=== PATIENT | male | born 1975 | race Caucasian/White ===

== ENCOUNTER 2019-04-18 12:57 | Outpatient (RCR) | payer MEDICARE, SELFPAY ==
[2019-04-18 14:09] VITALS: BP 120/76; PULSE 66; RESP 20; O2SAT 97; BMI 26.4
== END 2019-07-17 23:59 | disposition home or self-care (01) ==
PROVIDERS: Visit Provider Specialist
DX: I25.2 Old myocardial infarction (principal)
CPT/HCPCS: 93798

== ENCOUNTER 2020-01-22 20:03 | Emergency (ER) | payer MEDICARE, MEDICAID, SELFPAY ==
--- NOTE | ~2020-01-22 | CT_ITS ---
EXAMINATION: CT abdomen pelvis w con DATE: 01/22/2020 22:12 INDICATION: Right lower quadrant abdominal pain. Leukocytosis. TECHNIQUE: Computed tomography (CT) of the abdomen and pelvis was performed with 100 mL Omnipaque-350 intravenous contrast. Automated exposure control and iterative reconstruction technique were employe d. The dose-length product was 437.01 mGy-cm. COMPARISON: None FINDINGS: Mild bibasilar dependent atelectasis. 6 mm right lower lobe nodule. Heart size is normal. Atheroscler otic coronary artery calcification. No pericardial or pleural effusion. Median sternotomy wires and m ediastinal surgical clips are seen, likely from prior coronary artery bypass grafting. 1.6 cm hepatic cyst. Gallbladder, spleen, pancreas and bilateral adrenal glands are normal. Bilateral renal cysts, the largest on the left measuring 1.3 cm. Mild cecal wall thickening at the appendiceal orifice where there is a tiny calcified appendicolith. Prominent inflammatory stranding surrounding the appendix w hich is dilated to 11 mm with a few tiny foci of gas in the fat along the periphery of the appendix c onsistent with acute appendicitis with microperforation. No abscess or more remote free intraperitone al gas. Remainder of the bowels are normal. Bladder is normal. Small bilateral fat-containing inguina l hernias. Likely physiologic mild anterior wedging at T12 and L1. Severe disc height loss at L5-S1. No pathologically enlarged abdominal or pelvic lymphadenopathy. IMPRESSION: 1. Acute appendicitis with microperforation. Reviewed, dictated and finalized at location A.
--- NOTE | 2020-01-22 20:20 | ED.ABDPAIN ---
HPI - Abdominal Pain General Chief Complaint: Abdominal Pain Stated Complaint: abdominal pain Time Seen by Provider: 01/22/20 20:20 Source: patient Mode of arrival: ambulatory Limitations: no limitations History of Present Illness HPI narrative: 44-year-old man comes in today complaining of right lower quadrant pain that started 3 days ago. Patient states that it is worse with movement, palpation, and eating. He states that he ate last at 6:00 p.m., trying to eat soup, but was on late able to tolerate about four bites. He denies radiation to back, groin, flank or chest. He denies hematuria, dysuria, fever, nausea, vomiting, diarrhea, hematochezia, melena, and lightheadedness. He denies previous similar symptoms. MD elicited complaint: abdominal pain Onset (ago): day(s) (3) Pain Consistency: constant Location: RLQ Severity: severe Quality: stabbing and sharp Radiation: none Migration to: no migration Exacerbating factors: eating and movement Relieving factors: rest Related Data Home Medications Medication Instructions Recorded Confirmed atorvastatin 40 mg PO DAILY 01/22/20 01/22/20 clopidogrel 75 mg PO DAILY 01/22/20 01/22/20 docusate sodium [Stool Softener] 100 mg PO DAILY 01/22/20 01/22/20 fluticasone propionate 1 spray INTRANASAL BID 01/22/20 01/22/20 lisinopril 5 mg PO DAILY 01/22/20 01/22/20 metoprolol tartrate 50 mg PO BID 01/22/20 01/22/20 Allergies Allergy/AdvReac Type Severity Reaction Status Date / Time No Known Allergies Allergy Unverified 11/29/18 12:26 Review of Systems Constitutional: Constitutional: Denies chills, Denies fever(s) and Denies weakness Eyes: Eyes: Denies change in vision and Denies photophobia ENT: Denies dysphagia, Denies nasal congestion and Denies sore throat Cardiovascular: Cardiovascular: Denies chest pain and Denies radiating jaw, neck or arm pain Respiratory: Respiratory: Denies cough and Denies dyspnea Gastrointestinal: Gastrointestinal: Reports as per HPI Genitourinary: Genitourinary: Reports as per HPI Musculoskeletal: Musculoskeletal: Denies back pain, Denies arthralgias and Denies joint swelling Integumentary/Breasts: Skin/Breast: Denies pruritus, Denies erythema and Denies rash Neurologic: Denies vertigo, Denies dizziness and Denies syncope Hematologic/Lymphatic: Hematologic/Lymphatic: Denies easy bleeding and Denies easy bruising Allergic/Immunologic: Allergic/Immunologic: Denies lip swelling and Denies tongue swelling PMFSH Past Medical History Medical History CAD (coronary artery disease) Hyperlipidemia Hypertension Surgical History Surgical History History of ear surgery Hx of CABG Previous back surgery Family History Family History (Updated 04/18/19 @ 15:00 by Anant Hood RN) Father Acute myocardial infarction Mother Diabetes mellitus Social History Social History Smoking packs per day: 2.5 Smoking cigarettes per day: 50.0 Years smoked: 28 Smoking pack-years: 70.00 Smoking status: Former smoker Tobacco type: cigarettes Alcohol intake: former Substance use: never Gender identity (if verbalized by the patient): Male Exam Const: General: healthy appearing and alert Orientation/consciousness: patient oriented x3 Limitations: no limitations Other: [id number] acute distress HENMT: Head: normal to inspection Ears: external ears normal, TM's normal bilaterally and EAC's normal General nose exam: Normal nares present Face and sinus: normal facial exam Mouth: Yes moist mucous membranes Throat: posterior oropharynx normal Eyes: Conjunctivae: conjunctivae normal Pupils: Equal, round and reactive pupils present EOM: EOMs intact bilaterally Resp: Effort & Inspection: normal respiratory effort and not labored Auscultation: clear to au
[2020-01-22 20:24] VITALS: BP 127/74; PULSE 78; RESP 20; TEMP 36.2; O2SAT 98
[2020-01-22] MEDS: MORPHINE SULFATE (*CRX) 4 MG/ML INJ IV PUSH ×2 (20:41→22:15)
[2020-01-22] MEDS: ONDANSETRON INJ 4 MG/2 ML VIAL IV PUSH (20:42)
[2020-01-22] MEDS: SODIUM CHLORIDE 0.9% IV 1,000 ML 999 ML IV CONT ×2 (20:43→22:27)
[2020-01-22 20:56] LABS: Add Urine Microscopic? YES; Appearance Urine Clear (Clear); Bilirubin Urine 1+ (Negative); Blood Urine Negative (Negative); Color Urine Yellow (Yellow); Glucose Urine UA Negative (Negative); Ketones Urine Trace (Negative); Leukocyte Esterase Ur Negative LEU/UL (Negative); Nitrate Urine Negative (Negative); Protein Urine Trace (Negative)
[2020-01-22 20:56] LABS: Basophils Absolute Auto 0.04 K/mm3 (0.00-0.10); Basophils Percent Auto 0.3 % (0.0-1.0); Eosinophils Absolute Auto 0.11 K/mm3 (0.02-0.50); Eosinophils Percent Auto 0.9 % (1.0-6.0); Hematocrit 35.6 % (40.0-54.0); Hemoglobin 11.1 g/dL (14.0-18.0); Immature Granulocyte Absolute 0.06 K/mm3 (0.00-0.00); Immature Granulocyte Percent A 0.5 % (0.0-0.0); Lymphocytes Absolute Auto 1.18 K/mm3 (1.10-4.50); Mean Corpuscular HGB Conc 31.2 g/dL (32.0-36.0); Mean Corpuscular Hemoglobin 20.1 pg (27.0-31.0); Mean Corpuscular Volume 64.4 fL (78.0-102.0); Monocytes Absolute Auto 1.37 K/mm3 (0.10-0.90); Monocytes Percent Auto 11.6 % (2.0-11.0); Neutrophils Absolute Auto 9.1 K/mm3 (1.7-7.2); Neutrophils Percent Auto 76.7 % (50.0-70.0); Platelet Count Result 180 K/mm3 (150-420); Red Blood Count 5.53 M/mm3 (4.70-6.10); White Blood Count 11.8 K/mm3 (4.8-10.8)
[2020-01-22 21:05] LABS: RBC Urine None seen /hpf (0-2)
[2020-01-22 21:06] LABS: Bacteria Urine Trace /hpf; Mucus Urine Moderate /lpf; Squamous Epithelial Cell Urine Rare /hpf (Few); WBC Urine None seen /hpf (0-3)
[2020-01-22 21:11] LABS: Alanine Aminotransferase 17 U/L (16-63); Albumin Level 3.7 g/dL (3.4-5.0); Alkaline Phosphatase 83 U/L (46-116); Anion Gap 6 mmol/L (8-16); Aspartate Amino Transferase < 10 U/L (15-37); Bilirubin,Total 0.6 mg/dL (0.00-1.00); Blood Urea Nitrogen 12 mg/dL (7-18); Calcium 8.3 mg/dL (8.5-10.1); Carbon Dioxide 28 mmol/L (21-32); Chloride 104 mmol/L (98-108); Estimated CRCL calculation 86 ml/min; Estimated Glomerular Filt Rate > 60; Glucose 97 mg/dL (70-99); Lipase 99 U/L (73-393); Osmolality Calculated 285 mOsm/kg (285-295); Partial Thromboplastin Time 31.2 SEC (22.3-31.6); Potassium 3.8 mmol/L (3.5-5.1); Prothrombin Time 10.7 Seconds (9.64-11.0); Sodium 138 mmol/L (136-145); Total Protein 7.1 g/dL (6.4-8.2)
[2020-01-22 21:16] LABS: Lactic Acid Reflex 0.9 mmol/L (0.4-2.0)
[2020-01-22 22:05] VITALS: BP 102/61; PULSE 62; RESP 20; O2SAT 96
[2020-01-22 22:16] VITALS: BP 112/65; PULSE 64; RESP 20; O2SAT 96
--- NOTE | 2020-01-22 22:24 | PC.NURSE ---
CALL PLACED TO [facility] FOR POSSIBLE TRANSFER
[2020-01-22 22:48] VITALS: BP 115/66; PULSE 64; RESP 14; O2SAT 98
[2020-01-22 23:16] VITALS: BP 122/67; PULSE 85; RESP 20; O2SAT 97
== END 2020-01-22 23:19 | disposition short-term general hospital (02) ==
PROVIDERS: Emergency Provider Emergency Medicine
DX: K35.30 Acute appendicitis with localized peritonitis, without perforation or gangrene (principal)
CPT/HCPCS: 36415; 74177; 80053; 81001; 83605; 83690; 85025; 85610; 85730; 96361; 96365; 96375; 96376; 99285; J2270; J2405; J2543; J7030; Q9965

== ENCOUNTER 2020-01-23 00:04 | Inpatient (IN) | payer MEDICARE, MEDICAID, SELFPAY ==
--- NOTE | 2020-01-22 23:45 | ADMGEN ---
This patient, Ras Hi, was admitted to Medical Room 349-01. Patient/family oriented to hospital policies and general routines including ID bracelet, bed and alarms, visiting hours, pain management, procedures, bathroom and other care routines, personal items, smoking policy, room service/diet, and visiting hours. Information on how to activate the Rapid Response Team has been discussed. Patient/Family are encouraged to report perceived risks to care and to ask questions if they do not understand what they are told or what they should do.
[2020-01-22 23:50] VITALS: BP 120/78
[2020-01-23] VITALS (18 sets, daily range): BP systolic 99–152; BP diastolic 51–85; PULSE 64–90; RESP 12–19; TEMP 36–36.6; O2SAT 93–100; BMI 27.4
[2020-01-23] MEDS: LACTATED RINGERS 1,000 ML 125 ML IV CONT (00:41)
[2020-01-23] MEDS: MORPHINE SULFATE (*CRX) 2 MG/ML INJ IV PUSH (05:59)
--- NOTE | 2020-01-23 06:12 | WPDANESEPP ---
Anes - Eval Pre Procedure Procedure: lap appendectomy Date/Time: 01/23/20 06:12 Surgeon: ursula Pre Op Diagnosis: Acute Appendicitis Patient Data Age: 44 Gender: M Height: 1.8 m Weight: 89.2 kg Last Vital Signs Temp 36.4 C 01/23/20 05:59 Pulse 66 01/23/20 05:59 Resp 14 01/23/20 05:59 BP 107/63 01/23/20 05:59 Pulse Ox 94 01/23/20 05:59 Allergies Allergy/AdvReac Type Severity Reaction Status Date / Time No Known Allergies Allergy Unverified 11/29/18 12:26 Home Medications Medication Instructions Recorded Confirmed Type atorvastatin 40 mg PO HS 01/22/20 01/23/20 History clopidogrel 75 mg PO DAILY 01/22/20 01/23/20 History docusate sodium [Stool Softener] 100 mg PO DAILY 01/22/20 01/23/20 History fluticasone propionate 1 spray INTRANASAL BID 01/22/20 01/23/20 History lisinopril 5 mg PO HS 01/22/20 01/23/20 History metoprolol tartrate 50 mg PO BID 01/22/20 01/23/20 History aspirin [Aspirin Low Dose] 81 mg PO DAILY 01/23/20 01/23/20 History Laboratory Tests 01/23/20 01/23/20 05:54 05:54 WBC Pending RBC Pending Hgb Pending Hct Pending MCV Pending MCH Pending MCHC Pending RDW Pending Plt Count Pending MPV Pending Sodium Pending Potassium Pending Chloride Pending Carbon Dioxide Pending Anion Gap Pending BUN Pending Creatinine Pending Estim Creat Clear Calc Pending Estimated GFR Pending Glucose Pending Calcium Pending Patient hx anesthesia problems: none Family hx anesthesia problems: none PMFSH Past Medical History Medical History CAD (coronary artery disease) Hyperlipidemia Hypertension Surgical History Surgical History History of ear surgery Hx of CABG Previous back surgery Family History Family History Father Acute myocardial infarction Mother Diabetes mellitus Social History Social History Smoking packs per day: 3.5 Smoking cigarettes per day: 70.0 Years smoked: 28 Smoking pack-years: 98.00 Smoking status: Former smoker Tobacco type: cigarettes Smokeless tobacco user: chewing tobacco Alcohol intake: never Substance use: never Gender identity (if verbalized by the patient): Male Spiritual care concerns: No Exam Day of Procedure 01/23/20 06:12
[2020-01-23 06:16] LABS: Hemoglobin 10.5 g/dL (14.0-18.0); Immature Platelet Fraction Pct 8.8 % (0.9-11.2); Mean Corpuscular HGB Conc 30.9 g/dl (32-36); Mean Corpuscular Hemoglobin 20.2 pg (26-34); Mean Corpuscular Volume 65.3 fl (80-100); Platelet Count Result 147 k/mm3 (150-375); Red Blood Count 5.21 M/mm3 (4.6-6.20); Red Cell Distribution Width 15.2 % (11.5-14.5); White Blood Count 10.3 K/mm3 (4.5-10.0)
[2020-01-23 06:32] LABS: Anion Gap 6 mmol/L (8-16); Blood Urea Nitrogen 11 mg/dL (9-20); Calcium 8.5 mg/dL (8.4-10.2); Carbon Dioxide 27 mmol/L (22-30); Chloride 105 mmol/L (98-107); Estimated CRCL calculation 109 ml/min; Estimated Glomerular Filt Rate > 60; Glucose 107 mg/dL (75-110); Sodium 138 mmol/L (137-145)
--- NOTE | 2020-01-23 08:41 | PC.NURSE ---
Patient to OR per bed. Consent signed and on the chart. 1200 zosyn sent on chart.
[2020-01-23] MEDS: LACTATED RINGERS 1,000 ML 30 ML IV CONT ×2 (08:50→10:42)
--- NOTE | 2020-01-23 09:34 | PM.IMHP ---
H&P: HPI History of Present Illness Date/Time: 01/23/20 09:34 Chief complaint: RLQ abdominal pain Narrative: Ras Hi is a 44 year old male who presented to [facility] ED with pain in his RLQ for 4 days. Denies fevers, chills, nausea, vomiting, or change in bowel habits. Has never had anything like this before. He has hx CAD and had a CABG 1 year ago. He is currently on Aspirin and Plavix. Review of Systems Review of Systems: All systems reviewed & are unremarkable except as noted in HPI and below Constitutional: Constitutional: Denies chills and Denies fever(s) Eyes: Eyes: Denies change in vision ENT: Denies hearing loss, Denies neck pain and Denies sore throat Cardiovascular: Cardiovascular: Denies chest pain and Denies dyspnea Respiratory: Respiratory: Denies cough, Denies dyspnea and Denies wheezing Genitourinary: Genitourinary: Denies hematuria and Denies dysuria Musculoskeletal: Musculoskeletal: Denies arthralgias, Denies joint swelling and Denies neck pain Allergic/Immunologic: Allergic/Immunologic: Denies wheezing [facility] Past Medical History Medical History CAD (coronary artery disease) Hyperlipidemia Hypertension Surgical History Surgical History History of ear surgery Hx of CABG Previous back surgery Family History Family History Father Acute myocardial infarction Mother Diabetes mellitus Social History Social History Smoking packs per day: 3.5 Smoking cigarettes per day: 70.0 Years smoked: 28 Smoking pack-years: 98.00 Smoking status: Former smoker Tobacco type: cigarettes Smokeless tobacco user: chewing tobacco Alcohol intake: never Substance use: never Gender identity (if verbalized by the patient): Male Spiritual care concerns: No Meds Home Medications and Allergies Home Medications Medication Instructions Recorded Confirmed Type atorvastatin 40 mg PO HS 01/22/20 01/23/20 History clopidogrel 75 mg PO DAILY 01/22/20 01/23/20 History docusate sodium [Stool Softener] 100 mg PO DAILY 01/22/20 01/23/20 History fluticasone propionate 1 spray INTRANASAL BID 01/22/20 01/23/20 History lisinopril 5 mg PO HS 01/22/20 01/23/20 History metoprolol tartrate 50 mg PO BID 01/22/20 01/23/20 History aspirin [Aspirin Low Dose] 81 mg PO DAILY 01/23/20 01/23/20 History Allergies Allergy/AdvReac Type Severity Reaction Status Date / Time No Known Allergies Allergy Unverified 11/29/18 12:26 Vital Signs Vital Signs - 24 hr 01/22/20 23:50 01/23/20 05:59 01/23/20 08:58 Temperature 36.4 C 36.6 C Pulse Rate 66 70 Respiratory Rate 14 16 Blood Pressure 120/78 107/63 117/69 Pulse Oximetry 94 98 Exam Const: General: alert; No acute distress Orientation/consciousness: patient oriented x3 Limitations: no limitations HENMT: Head: normocephalic and atraumatic Ears: hearing grossly normal bilaterally General nose exam: Normal external nose present and Normal nares present Mouth: Yes Normal oral and palatal mucosa present and Yes moist mucous membranes Eyes: General: appearance normal, both eyes and all related structures Conjunctivae: conjunctivae normal Sclera: sclerae normal Pupils: Equal, round and reactive pupils present EOM: EOMs intact bilaterally Neck: Neck: normal visual inspection, full ROM, no lymphadenopathy, supple and no JVD Lymphatic: no lymphadenopathy noted Chest: Chest palpation & inspection: normal inspection of the chest Resp: Effort & Inspection: normal respiratory effort and able to speak in complete sentences Auscultation: clear to auscultation bilaterally Percussion: percussion normal Cardio: Jugular venous distension: no JVD Rate: regular rate Rhythm: regular rhythm Heart sounds: S1 normal heart sound
--- NOTE | 2020-01-23 09:39 | WPDHPUPDATE1 ---
History and Physical Update Update Date/Time: 01/23/20 09:39 History and Physical has been reviewed, including an updated exam of the patient. There are NO changes in the patient's condition. Risks, benefits, and alternatives have been discussed and questions answered. Patient agrees to proceed with procedure.
[2020-01-23] MEDS: BUPIVACAINE/EPINEPHRINE 0.5% 10 ML VIAL 30 ML INFILTRATE (10:13)
--- NOTE | 2020-01-23 10:43 | PM.PROC ---
Procedure Note - Detailed Date of procedure: 01/23/20 Pre-op diagnosis: Acute appendicitis Post-op diagnosis: other (Acute perforated appendicitis, Left inguinal hernia) Procedure performed: Laparoscopic Appendectomy Description of procedure: Procedure as well as risks, benefits, and alternatives were explained to the patient. The patient agreed to proceed. Written consent was obtained and placed in chart prior to procedure. The patient was brought back to surgical suite. He was placed supine on operating table. Time-out was done to confirm the patient and procedure. The patient was then intubated by the Anesthesia Department. His abdomen was prepped and draped in sterile fashion using chlorhexidine prep. A 12 mm incision was made at the superior portion of the umbilicus. Blunt dissection was carried out down to the linea alba. The linea alba was then incised using a 15 blade scalpel. Then bluntly entered into the peritoneal cavity. A 12 mm trocar was then inserted, and carbon dioxide insufflation was used to create a pneumoperitoneum. The camera was inserted and the abdomen was inspected. No immediate abnormalities were identified. The patient was then placed in slight Trendelenburg position and rotated to the left. A 5 mm incision was made in the suprapubic region in midline and a 5 mm trocar was inserted under direct visualization. A 5 mm incision was made in the left lower quadrant and a 5 mm trocar was inserted under direct visualization. The right lower quadrant was carefully inspected. The cecum was identified and then this was traced back to the appendix. The appendix was identified and grasped at the mesoappendix and lifted anteriorly. Careful blunt dissection was carried out at the base of the appendix through the mesoappendix using a [place] grasper. An Endo-MICAH 45 mm blue load stapler was then advanced across the base of the appendix and clamped and fired. A white reload was then clamped across the mesoappendix and fired. This freed up our appendix completely. It was then placed in an EndoCatch bag and removed through the left lower quadrant port. The staple lines were then inspected. Hemostasis appeared adequate and the staple lines appeared secure. The area was then irrigated with sterile saline. The pelvis was then carefully inspected and irrigated with sterile saline as well and the remainder of the abdomen was carefully inspected. The patient was then flattened out in bed. One final inspection was made around the abdominal cavity and no other abnormalities were seen. The ports were then removed under direct visualization. The camera was removed and the pneumoperitoneum was released. The fascia of the umbilical incision was reapproximated using an 0 Vicryl [id number] suture. 0.5% bupivacaine with epinephrine was infiltrated locally around each of the incisions. The skin of the incisions was then approximated using 4-0 Monocryl subcuticular suture and Exofin glue was applied on top. The patient was then awakened from anesthesia, extubated, and transferred to Recovery. Anesthesia: GETA and local (0.5% bupivicaine with epi) Surgeon: Chadwick Wolf DO Estimated blood loss (mL): 5 Pathology: yes (Appendix) Complications: No immediate complications Condition: stable Disposition: floor Findings: This is a 44-year-old man who presented to [facility] overnight with complaints of right lower quadrant abdominal pain. He had been experiencing pain for about 4 days. He denies any fevers or chills. Denies any change in bowel habits. In the emergency department at [facility] he was noted to have an elevated white blood count and CT showed evidence of acute appendicitis with possible perforation. He was then transferred to [facility] for further treatment. He was started on broad-spectrum IV antibiotics. Discussions were made with the patient about treatment options and decision was made to proceed wi
[2020-01-23] MEDS: fentaNYL CITRATE INJ (*CRX) 100 MCG/2 ML VIAL 25 MCG IV PUSH ×4 (11:00→11:15)
[2020-01-23] MEDS: HYDROmorphone HCL INJ (*CRX) 1 MG/ML SYR 0.5 MG IV PUSH ×2 (11:27→11:36)
--- NOTE | 2020-01-23 11:57 | PC.NURSE ---
Patient returned from OR per bed. Report received from GRACE Spears.
[2020-01-23] MEDS: METOPROLOL TARTRATE 50 MG TAB PO (17:08)
[2020-01-23] MEDS: FLUTICASONE PROPIONATE 0.05% NA SPR 16 GM BTL (*BKC) 1 SPRAY NASAL (17:08)
[2020-01-23] MEDS: lisinopriL 5 MG TABLET PO (20:02)
[2020-01-23] MEDS: ATORVASTATIN 40 MG TABLET PO (20:02)
[2020-01-23] MEDS: ACETAMINOPHEN 325 MG TABLET 650 MG PO (20:03)
[2020-01-24] VITALS (7 sets, daily range): BP systolic 98–127; BP diastolic 56–74; PULSE 55–89; RESP 14–17; TEMP 36.2–36.3; O2SAT 95–98
[2020-01-24 05:33] LABS: Hematocrit 33.9 % (42.0-52.0); Hemoglobin 10.4 g/dL (14.0-18.0); Immature Platelet Fraction Pct 10.3 % (0.9-11.2); Mean Corpuscular HGB Conc 30.7 g/dl (32-36); Mean Corpuscular Hemoglobin 20.2 pg (26-34); Mean Corpuscular Volume 65.8 fl (80-100); Platelet Count Result 167 k/mm3 (150-375); Red Blood Count 5.15 M/mm3 (4.6-6.20); Red Cell Distribution Width 14.9 % (11.5-14.5); White Blood Count 11.3 K/mm3 (4.5-10.0)
[2020-01-24 05:45] LABS: Anion Gap 8 mmol/L (8-16); Blood Urea Nitrogen 11 mg/dL (9-20); Calcium 8.9 mg/dL (8.4-10.2); Carbon Dioxide 27 mmol/L (22-30); Chloride 103 mmol/L (98-107); Estimated CRCL calculation 98 ml/min; Estimated Glomerular Filt Rate > 60; Glucose 115 mg/dL (75-110); Sodium 138 mmol/L (137-145)
[2020-01-24] MEDS: ASPIRIN 81 MG ENTERIC TABLET PO (08:39)
[2020-01-24] MEDS: DOCUSATE SODIUM 100 MG CAPSULE PO (08:39)
[2020-01-24] MEDS: METOPROLOL TARTRATE 50 MG TAB PO ×2 (08:40→17:28)
[2020-01-24] MEDS: FLUTICASONE PROPIONATE 0.05% NA SPR 16 GM BTL (*BKC) 1 SPRAY NASAL ×2 (08:41→17:27)
[2020-01-24] MEDS: ACETAMINOPHEN 325 MG TABLET 650 MG PO ×2 (08:55→17:27)
--- NOTE | 2020-01-24 11:53 | PM.PNGS ---
Progress Note: A&P Assessment and Plan (1) Acute appendicitis: Code(s): K35.80 - Unspecified acute appendicitis Status: Acute Assessment and Plan: Continue IV Zosyn Increase activity Advance diet Possibly home tomorrow (2) extermination inspector (current) use of antithrombotics/antiplatelets: Code(s): Z79.02 - nursing home (current) use of antithrombotics/antiplatelets Status: Acute (3) CAD (coronary artery disease): Code(s): I25.10 - Atherosclerotic heart disease of [place] coronary artery without angina pectoris Status: Acute Subjective Subjective Date/Time Seen: 01/24/20 11:53 Pain controlled. Tolerating diet. No fevers. Exam GI: Inspection: non-distended and incision (intact with glue) GI Palp: Yes Tenderness to palpation present (GI) (incisional) Auscultation: Hypoactive bowel sounds present Objective Data Vital Signs Vital Signs: Vital Signs - 24 hr 01/23/20 12:28 01/23/20 12:43 01/23/20 13:13 Temperature 36.6 C 36.5 C 36.4 C L Pulse Rate 72 64 69 Respiratory Rate 14 16 14 Blood Pressure 101/53 L 99/67 L 106/64 Pulse Oximetry 97 96 98 01/23/20 14:39 01/23/20 17:08 01/23/20 19:25 Temperature 36.6 C 36.3 C L Pulse Rate 73 90 71 Respiratory Rate 12 14 Blood Pressure 113/72 112/69 Pulse Oximetry 98 96 01/23/20 20:00 01/23/20 23:39 01/24/20 05:10 Temperature 36.0 C L 36.3 C L Pulse Rate 71 64 66 Respiratory Rate 14 14 14 Blood Pressure 103/52 L 122/62 Pulse Oximetry 96 94 95 01/24/20 08:00 01/24/20 08:40 Temperature 36.3 C L Pulse Rate 68 72 Respiratory Rate 14 Blood Pressure 127/74 Pulse Oximetry 97 Intake/Output Intake/Output: Intake & Output 01/21/20 01/22/20 01/23/20 01/24/20 23:59 23:59 23:59 23:59 Intake Total 2772 340 Output Total 1075 Balance 1697 340 Meds/Results Medications: Active Medications Generic Name Dose Route Start Last Admin Trade Name Freq PRN Reason Stop Dose Admin Acetaminophen 650 mg 01/23/20 11:43 01/24/20 08:55 Acetaminophen 325 Mg Tablet PO 650 mg Q6H PRN Administration Mild Pain (1-3) or Fever Hydrocodone Bitart/Acetaminophen 1 tab 01/23/20 11:43 Hydrocodone/Acetaminophen (*Crx) 5-325 Mg Tablet PO Q4H PRN Pain Rated 4-6 Hydrocodone Bitart/Acetaminophen 1 tab 01/23/20 11:43 Hydrocodone/Acetaminophen (*Crx) 7.5-325 Mg Tablet PO Q4H PRN Pain Rated 7-10 Aspirin 81 mg 01/24/20 09:00 01/24/20 08:39 Aspirin 81 Mg Enteric Tablet PO 81 mg DAILY CHAVA Administration Atorvastatin Calcium 40 mg 01/23/20 21:00 01/23/20 20:02 Atorvastatin 40 Mg Tablet PO 40 mg HS CHAVA Administration Docusate Sodium 100 mg 01/24/20 09:00 01/24/20 08:39 Docusate Sodium 100 Mg Capsule PO 100 mg DAILY CHAVA Administration Fluticasone Propionate 1 spray 01/23/20 17:00 01/24/20 08:41 Fluticasone Propionate 0.05% Na Spr 16 Gm Btl (*Bkc) NASAL 1 spray BID CHAVA Administration Piperacillin/Tazobactam/Dextrose 3.375 gm in 50 mls @ 100 mls/hr 01/23/20 00:00 01/24/20 05:58 Zosyn 3.375 Gm/D5w 50ml Pm IVPB Infused Q6H CHAVA Infusion Lisinopril 5 mg 01/23/20 21:00 01/23/20 20:02 Lisinopril 5 Mg Tablet PO 5 mg HS CHAVA Administration Metoprolol Tartrate 50 mg 01/23/20 17:00 01/24/20 08:40 Metoprolol Tartrate 50 Mg Tab PO 50 mg BID CHAVA Administration Morphine Sulfate 4 mg 01/23/20 11:43 Morphine Sulfate (*Crx) 4 Mg/Ml Inj IV PUSH Q2H PRN Pain Rated 7-10 Morphine Sulfate 2 mg 01/23/20 11:43 Morphine Sulfate (*Crx) 2 Mg/Ml Inj IV PUSH Q2H PRN Pain Rated 4-6 Ondansetron HCl 4 mg 01/23/20 00:07 Ondansetron Inj 4 Mg/2 Ml Vial IV PUSH Q4H PRN Nausea And Vomiting Labs Labs: Laboratory Results - last 24 hr 01/24/20 01/24/20 05:01 05:01 WBC 11.3 H RBC 5.15 Hgb 10.4 L Hct 33.9 L MCV 65.8 L MCH 20.2 L MCHC 30.7 L RDW 14.9 H Plt Count 167 MP
--- NOTE | 2020-01-24 12:00 | WPDANESPN ---
Anes - Prog Note Post-Op Date/Time: 01/24/20 12:00 Cardiovascular status: normal Respiratory status: normal Airway patency: baseline Mental status: baseline Post-Op hydration status: normal Vital Signs: Last Vital Signs Temp 36.3 C L 01/24/20 08:00 Pulse 72 01/24/20 08:40 Resp 14 01/24/20 08:00 BP 127/74 01/24/20 08:00 Pulse Ox 97 01/24/20 08:00 Pain Score (VAS): 2 I/O: Intake & Output 01/23/20 01/24/20 01/24/20 23:59 07:59 15:59 Intake Total 912 100 240 Output Total 425 Balance 487 100 240 Laboratory Tests 01/24/20 05:01 01/24/20 05:01 01/24/20 01/24/20 05:01 05:01 WBC 11.3 H RBC 5.15 Hgb 10.4 L Hct 33.9 L MCV 65.8 L MCH 20.2 L MCHC 30.7 L RDW 14.9 H Plt Count 167 MPV TNP % Immature Plt Fraction 10.3 Sodium 138 Potassium 4.0 Chloride 103 Carbon Dioxide 27 Anion Gap 8 BUN 11 Creatinine 0.90 Estim Creat Clear Calc 98 Estimated GFR > 60 Glucose 115 H Calcium 8.9 Post-procedural complaints: none Patient Feedback: Patient satisfied with anesthetic care.
[2020-01-24] MEDS: lisinopriL 5 MG TABLET PO (20:42)
[2020-01-24] MEDS: ATORVASTATIN 40 MG TABLET PO (20:42)
[2020-01-25 04:46] VITALS: BP 100/58; PULSE 57; RESP 16; TEMP 36.1; O2SAT 96
[2020-01-25 06:17] LABS: Anion Gap 3 mmol/L (8-16); Blood Urea Nitrogen 14 mg/dL (9-20); Calcium 8.7 mg/dL (8.4-10.2); Carbon Dioxide 29 mmol/L (22-30); Chloride 105 mmol/L (98-107); Estimated CRCL calculation 98 ml/min; Estimated Glomerular Filt Rate > 60; Glucose 94 mg/dL (75-110); Potassium 3.8 mmol/L (3.4-5.0); Sodium 137 mmol/L (137-145)
[2020-01-25 06:20] LABS: Hematocrit 29.4 % (42.0-52.0); Hemoglobin 9.4 g/dL (14.0-18.0); Immature Platelet Fraction Pct 9.5 % (0.9-11.2); Mean Corpuscular Hemoglobin 20.2 pg (26-34); Mean Corpuscular Volume 63.1 fl (80-100); Platelet Count Result 158 k/mm3 (150-375); Red Blood Count 4.66 M/mm3 (4.6-6.20); Red Cell Distribution Width 14.7 % (11.5-14.5); White Blood Count 7.1 K/mm3 (4.5-10.0)
[2020-01-25] MEDS: ASPIRIN 81 MG ENTERIC TABLET PO (08:22)
[2020-01-25] MEDS: DOCUSATE SODIUM 100 MG CAPSULE PO (08:22)
[2020-01-25] MEDS: FLUTICASONE PROPIONATE 0.05% NA SPR 16 GM BTL (*BKC) 1 SPRAY NASAL (08:22)
[2020-01-25 08:23] VITALS: PULSE 61
[2020-01-25] MEDS: METOPROLOL TARTRATE 50 MG TAB PO (08:23)
[2020-01-25] MEDS: ACETAMINOPHEN 325 MG TABLET 650 MG PO (11:15)
--- NOTE | 2020-01-25 11:55 | PM.DS ---
DS: Admitting Diagnosis Admitting Diagnosis Admitting Diagnosis: Acute appendicitis DS: Discharge Diagnosis Discharge Diagnosis (1) Acute appendicitis: Code(s): K35.80 - Unspecified acute appendicitis Status: Acute (2) rn infusion (current) use of antithrombotics/antiplatelets: Code(s): Z79.02 - rn infusion (current) use of antithrombotics/antiplatelets Status: Acute (3) CAD (coronary artery disease): Code(s): I25.10 - Atherosclerotic heart disease of [place] coronary artery without angina pectoris Status: Acute (4) Hypertension: Code(s): I10 - Essential (primary) hypertension Status: Acute (5) Hyperlipidemia: Code(s): E78.5 - Hyperlipidemia, unspecified Status: Acute DS: Summary Hospital Course Reason for hospitalization: Acute appendicitis Hospital Course: This is a 44-year-old man who presented to [place] [facility] on 01/21 with complaints right lower quadrant pain. CT of his abdomen and pelvis showed evidence of likely perforated appendicitis. He was transferred to [facility] for further treatment. On 01/23/2020 he underwent laparoscopic appendectomy. He was placed on broad-spectrum IV antibiotics. Surgery was uncomplicated and he was doing well postoperatively. On postop day 1 he was tolerating a diet and his pain was improving. His white blood count was still elevated but he was remaining hemodynamically stable. On postop day 2 he remained afebrile and now his white count came down to normal. He was tolerating his diet with minimal pain and was ambulating without much difficulty. He was discharged on postop day 2. Status at Discharge Functional status at discharge: independent ambulation Overall status at discharge: patient is progressing back to baseline Time Spent with Patient Time attestation: Total time spent providing and/or coordinating discharge services: Time spent: Less than 30 minutes Exam GI: Inspection: incision ( Clean/dry /intact) GI Palp: Yes Soft to palpation and No Tenderness to palpation present (GI) Auscultation: normal bowel sounds DS: Data Data Completed and Pending Completed studies during hospitalization: Pending at discharge 01/23/20 10:09 Surgical [PTH] Routine Labs on day of discharge: Labs from last 24 hours 01/25/20 01/25/20 05:57 05:57 WBC 7.1 RBC 4.66 Hgb 9.4 L Hct 29.4 L MCV 63.1 L MCH 20.2 L MCHC 32.0 RDW 14.7 H Plt Count 158 MPV TNP % Immature Plt Fraction 9.5 Sodium 137 Potassium 3.8 Chloride 105 Carbon Dioxide 29 Anion Gap 3 L BUN 14 Creatinine 0.90 Estim Creat Clear Calc 98 Estimated GFR > 60 Glucose 94 Calcium 8.7 Discharge Plan Discharge Attending physician on discharge: Chadwick Claudio Discharging Clinician: Chadwick Claudio Patient Disposition: Home, Self-Care Activity: other - see discharge instructions Diet: heart healthy Wound Care Instructions: follow printed instructions Discharge Instructions: DISCHARGE INSTRUCTION SHEET FOR HERNIA, GALLBLADDER AND APPENDIX SURGERIES DR. CLAUDIO PATIENT TO TAKE HOME 1. May shower, no soaking in bath x 2weeks. 2. Call office for: Wound increasingly painful or bleeding Vomiting Fever of greater than 101 degrees 3. If no bowel movement for three days, take 1 oz. (30 ml) Milk of Magnesia or MiraLax 17g 1 to 2 times daily. 4. No heavy lifting > 10-15 pounds x weeks for hernia repairs and 2 weeks for laparoscopic cholecystectomy or appendectomy. 5. No driving for 3 days or while taking narcotic pain medications. 6. Ice to surgical site for 48 hours (30 min on, then 30 min off). 7. Up walking 10-30 minutes three times per day. 8. Resume previous home medications. 9. Follow-up 10-14 days in office for wound check or as previously scheduled. ([phone]) 10. Oral
== END 2020-01-25 12:52 | disposition home or self-care (01) | DRG 340 ==
PROVIDERS: Admitting Provider Surgery; PCP Emergency Medicine; Visit Provider Surgery
PROC: 0DTJ4ZZ Resection of Appendix, Percutaneous Endoscopic Approach (ICD-10-PCS; CPT 44970; principal; 2020-01-23 10:00)
DX: K35.32 Acute appendicitis with perforation, localized peritonitis, and gangrene, without abscess (principal); Z23 Encounter for immunization; K40.90 Unilateral inguinal hernia, without obstruction or gangrene, not specified as recurrent; E78.5 Hyperlipidemia, unspecified; I25.10 Atherosclerotic heart disease of native coronary artery without angina pectoris; I10 Essential (primary) hypertension; Z95.1 Presence of aortocoronary bypass graft; Z79.02 Long term (current) use of antithrombotics/antiplatelets; Z79.82 Long term (current) use of aspirin; Z87.891 Personal history of nicotine dependence
CPT/HCPCS: 36415; 80048; 85027; 85055; 86850; 86900; 86901; 88304; 90471; 90653; 96361; 96365; 96366; 96374; 96375; A9270; G0008; G0378; J0330; J1100; J1170; J2250; J2270; J2405; J2543; J2704; J3010; J7120

== ENCOUNTER 2020-07-14 02:21 | Emergency (ER) | payer MEDICARE, MEDICAID, SELFPAY ==
--- NOTE | 2020-07-14 02:24 | ED.NECK ---
HPI - Neck Pain/Injury General Chief Complaint: Unspecified Stated Complaint: PAIN Time Seen by Provider: 07/14/20 02:27 Source: patient Mode of arrival: ambulatory Limitations: no limitations History of Present Illness HPI Narrative: 44-year-old man comes in today complaining of left-sided neck pain which has been present for last 2 months. Patient states that it got worse tonight woke him out of his sleep. He states he intermittently has tingling in his left arm but denies any numbness or weakness. He has had no recent trauma to his neck. States that he had a neck injury many years ago and was told that he had some disc problems. MD complaint: neck pain Onset (ago): month(s) (2) Radiation: left lateral, left shoulder and left upper extremity Severity: severe Quality: sharp Duration: intermittent and progressively worsening Relieving factors: none Exacerbating factors: movement of neck Associated symptoms: tingling Related Data Home Medications Medication Instructions Recorded Confirmed atorvastatin 40 mg PO HS 01/22/20 07/14/20 clopidogrel 75 mg PO DAILY 01/22/20 07/14/20 docusate sodium [Stool Softener] 100 mg PO DAILY 01/22/20 07/14/20 fluticasone propionate 1 spray INTRANASAL BID 01/22/20 07/14/20 lisinopril 5 mg PO HS 01/22/20 07/14/20 metoprolol tartrate 50 mg PO BID 01/22/20 07/14/20 aspirin [Aspirin Low Dose] 81 mg PO DAILY 01/23/20 07/14/20 Allergies Allergy/AdvReac Type Severity Reaction Status Date / Time No Known Allergies Allergy Unverified 02/09/20 14:20 Review of Systems Review of Systems: All systems reviewed & are unremarkable except as noted in HPI and below Constitutional: Constitutional: Denies chills and Denies fever(s) ENT: Denies nasal congestion and Denies sore throat Cardiovascular: Cardiovascular: Denies chest pain and Denies radiating jaw, neck or arm pain Respiratory: Respiratory: Denies cough and Denies dyspnea Gastrointestinal: Gastrointestinal: Denies vomiting Genitourinary: Genitourinary: Denies urinary incontinence Musculoskeletal: Musculoskeletal: Reports as per HPI, Denies arthralgias and Denies joint swelling Hematologic/Lymphatic: Hematologic/Lymphatic: Denies easy bleeding and Denies easy bruising Allergic/Immunologic: Allergic/Immunologic: Denies lip swelling and Denies throat swelling PMFSH Past Medical History Medical History CAD (coronary artery disease) Hyperlipidemia Hypertension Surgical History Surgical History History of ear surgery History of laparoscopic appendectomy Hx of CABG Previous back surgery Family History Family History Father Acute myocardial infarction Mother Diabetes mellitus Social History Social History Smoking packs per day: 3.5 Smoking cigarettes per day: 70.0 Years smoked: 28 Smoking pack-years: 98.00 Smoking status: Former smoker Tobacco type: cigarettes Smokeless tobacco user: chewing tobacco Alcohol intake: never Substance use: never Gender identity (if verbalized by the patient): Male Spiritual care concerns: No Exam Const: General: healthy appearing and alert Orientation/consciousness: patient oriented x3 Limitations: no limitations Other: moderate acute distress. HENMT: General nose exam: Normal nares present Face and sinus: normal facial exam Mouth: Yes moist mucous membranes Throat: posterior oropharynx normal Eyes: Conjunctivae: conjunctivae normal Pupils: Equal, round and reactive pupils present EOM: EOMs intact bilaterally Neck: Neck: normal visual inspection, no lymphadenopathy and no meningeal signs Other: Tenderness to palpation of the left paraspinal neck muscles and the left trapezius. no masses or swelling. Resp: Effort & Inspection: normal
[2020-07-14 02:31] VITALS: BP 132/80; PULSE 70; RESP 18; TEMP 37.1
[2020-07-14] MEDS: HYDROcodone/acetaminophen (*CRX) 5-325 MG TABLET 1 TAB PO (02:52)
[2020-07-14 02:56] VITALS: BP 132/82; PULSE 80; RESP 18; TEMP 36.4; O2SAT 94
== END 2020-07-14 02:57 | disposition home or self-care (01) ==
PROVIDERS: Emergency Provider Emergency Medicine
DX: M54.12 Radiculopathy, cervical region (principal)
CPT/HCPCS: 99283; A9270

== ENCOUNTER 2020-07-17 09:50 | Outpatient (CLI) | payer MEDICARE, MEDICAID, SELFPAY ==
--- NOTE | ~2020-07-17 | XR_ITS ---
EXAMINATION: XR_CERV2-3V_CR EXAM DATE: 07/17/2020 10:48 INDICATION: Left-sided neck pain into top of shoulder. TECHNIQUE: Cervical spine frontal, lateral projections. Odontoid open-mouth and submentovertex proje ctions. There is no prior study for comparison. FINDINGS: There is no evidence of acute cervical fracture. The odontoid process is intact. Pre-dens space is normal. Prevertebral soft tissue is normal. There are no soft tissue abnormalities identi fied. There is moderate disc disease at C4-5 and C6-7, mild to moderate at C3-4 and C5-6. Overall mi ld to moderate cervical arthropathy. Mild upper thoracic levoscoliosis, but likely compensatory for m uch more substantial thoracic dextroscoliosis. There are sternotomy wires. The vertebral bodies are aligned. IMPRESSION: 1. Up to moderate cervical spondylosis. Reviewed, dictated and finalized at location A.
== END 2020-07-17 09:51 | disposition home or self-care (01) ==
LOC: CHSIMG 09:53
PROVIDERS: PCP Nurse Practitioner Family; Visit Provider Nurse Practitioner Family
DX: M54.12 Radiculopathy, cervical region (principal)
CPT/HCPCS: 72040

== ENCOUNTER 2020-07-18 08:45 | Outpatient (CLI) | payer MEDICARE, MEDICAID, SELFPAY ==
--- NOTE | ~2020-07-18 | MR_ITS ---
EXAMINATION: MR cervical spine wo con EXAM DATE: 07/18/2020 09:41 INDICATION: M54.12 - Radiculopathy, cervical region . Neck pain for 2 months. Possible lifting injury . TECHNIQUE: Multi-sequential, multiplanar MR images of the cervical spine were obtained without contra st. Axial T2, axial T2 MERGE sequence. Sagittal T1, T2, T2 fat saturation images also obtained. Th ere is no prior study for comparison. FINDINGS:. Study is limited due to patient motion. Moderate disc disease at C6-7, mild to moderate at the 3 levels above. Evidence of thoracic scoliosis. The vertebral bodies are aligned in the AP dim ension. The spinal cord signal intensity and intrinsic morphology is normal. Cervicomedullary junctio n is normal in appearance. There are no suspicious marrow signal abnormalities. Level by level evaluation: C2-C3: Disc does not extend beyond the endplate margin. Uncovertebral joint arthropathy: None. Facet joint arthropathy: Mild bilateral. Neural foraminal stenosis: No stenosis. Central canal stenosis: No stenosis. C3-C4: There is a mild diffuse disc bulge. Uncovertebral joint arthropathy: Mild to moderate bilateral. Facet joint arthropathy: Mild bilateral. Neural foraminal stenosis: Mild to moderate bilateral. Central canal stenosis: Mild. C4-C5: There is a mild diffuse disc bulge. Uncovertebral joint arthropathy: Mild bilateral. Facet joint arthropathy: Mild bilateral. Neural foraminal stenosis: Mild to moderate bilateral. Central canal stenosis: Mild. C5-C6: There is a mild to moderate diffuse disc bulge asymmetric to the right Uncovertebral joint arthropathy: Moderate right, mild left. Facet joint arthropathy: Mild bilateral. Neural foraminal stenosis: Mild right. Central canal stenosis: Mild. C6-C7: There is a mild to moderate diffuse disc bulge asymmetric to the right Uncovertebral joint arthropathy: Moderate bilateral. Facet joint arthropathy: Mild bilateral. Neural foraminal stenosis: Moderate left, mild right. Central canal stenosis: Mild. C7-T1: Disc does not extend beyond the endplate margin. Uncovertebral joint arthropathy: Moderate left, mild right. Facet joint arthropathy: Mild bilateral. Neural foraminal stenosis: Mild to moderate left. Central canal stenosis: No stenosis. IMPRESSION: Limited study. Up to moderate cervical spondylosis as detailed above. Reviewed, dictated and finalized at location A. IMPRESSION: Limited study. Up to moderate cervical spondylosis as detailed deshawn burrell
== END 2020-07-18 08:46 | disposition home or self-care (01) ==
LOC: CHSIMG 08:47
PROVIDERS: PCP Nurse Practitioner Family; Visit Provider Nurse Practitioner Family
DX: M54.12 Radiculopathy, cervical region (principal); M47.812 Spondylosis without myelopathy or radiculopathy, cervical region; M41.80 Other forms of scoliosis, site unspecified
CPT/HCPCS: 72141

== ENCOUNTER 2020-07-24 12:58 | Outpatient (RCR) | payer MEDICARE, MEDICAID, SELFPAY ==
--- NOTE | 2020-07-24 14:19 | PTOPEVAL ---
Thank you for referring Ras Hi to [facility].? The patient is scheduled to be seen for therapy? ____x/week for ___ weeks. Please review, sign, date and return this plan of care ROSA. I agree with and certify that the following plan of care is medically necessary. Referring Physician Date Admitting Provider: Attending Provider: Mirian Bowers NP Referring Provider: *PT Outpatient Evaluation Start: 07/24/20 12:56 Freq: Status: Active Protocol: Document 07/24/20 12:57 ACR (Rec: 07/24/20 14:18 ACR [id number]) Therapy Assessment Status Assessment Status Assessment Status Evaluation Outpatient Past Medical History Neurological History Hx Seizures Yes: fever seizures per pt last one when he was 15 Cardiovascular History Hx Coronary Artery Bypass Graft Yes: 12/03/18 Hx Hypercholesterolemia Yes Hx Hypertension Yes Hx Myocardial Infarction Yes: 11/28/18 Respiratory History Hx Respiratory Disorders No Significant History Gastrointestinal History Hx Gastroesophageal Reflux Disease Yes Hx Other Gastrointestinal Disorders Yes: appendicitis this admission Genitourinary History Hx Kidney Stones Yes Musculoskeletal History Hx Orthopedic Surgery Yes: Disc [id number] Hematological History Hx Hematological Disorders No Significant History Endocrine History Hx Endocrine Disorders No Significant History HEENT History Hx Ear Surgery Yes: surgery for ear infection Hx Other HEENT Disorders Yes: hard of hearing both ears Integumentary History Hx Other Skin Disorders Yes: flea bites Reproductive History Hx Reproductive Disorders No Significant History Psychosocial History Hx Psychiatric Disorders No Significant History Pain History History of Any Previous or Ongoing No Significant History Instance of Pain Anesthesia History Hx Anesthesia Reactions No Significant History Evaluation Information Problem Diagnosis radiculopathy, scoliosis Onset 05/26/20 Subjective Information Patient states he has had neck Query Text:As Reported By Patient/ pain and he believes it Family started to flare up 2 months ago. Patient states that he popped the discs in his neck in 2011. Patient states he lays in bed a lot because of the pain. Patient states he is unable to turn his head to the L, and lifting his arm above shoulder level. Patient states that he has some
== END 2020-08-28 11:05 | disposition home or self-care (01) ==
LOC: CHSPT 12:58
PROVIDERS: Visit Provider Nurse Practitioner Family
DX: M54.12 Radiculopathy, cervical region (principal); M41.80 Other forms of scoliosis, site unspecified; M47.812 Spondylosis without myelopathy or radiculopathy, cervical region
CPT/HCPCS: 97014; 97110; 97140; 97161; 97530; G0283

== ENCOUNTER 2020-10-16 09:34 | Outpatient (CLI) | payer MEDICARE, SELFPAY ==
[2020-10-16 10:28] LABS: Alanine Aminotransferase 25 U/L (16-63); Alkaline Phosphatase 104 U/L (46-116); Anion Gap 11 mmol/L (8-16); Aspartate Amino Transferase 14 U/L (15-37); Bilirubin,Total 0.7 mg/dL (0.00-1.00); Blood Urea Nitrogen 9 mg/dL (7-18); Calcium 8.6 mg/dL (8.5-10.1); Carbon Dioxide 26 mmol/L (21-32); Chloride 107 mmol/L (98-108); Cholesterol 93 mg/dL (0-200); Creatine Kinase 103 U/L (39-308); Estimated Glomerular Filt Rate > 60; Glucose 87 mg/dL (70-99); HDL Direct 25 mg/dL (40-60); LDL Cholesterol Calculated 37 mg/dL (<130); Osmolality Calculated 295 mOsm/kg (285-295); Potassium 4.3 mmol/L (3.5-5.1); Sodium 144 mmol/L (136-145); Total Protein 6.5 g/dL (6.4-8.2); Triglycerides 154 mg/dL (0-150)
== END 2020-10-16 09:35 | disposition home or self-care (01) ==
LOC: CHSLAB 09:39
DX: E78.2 Mixed hyperlipidemia (principal); I25.10 Atherosclerotic heart disease of native coronary artery without angina pectoris; I25.709 Atherosclerosis of coronary artery bypass graft(s), unspecified, with unspecified angina pectoris
CPT/HCPCS: 36415; 80053; 80061; 82550

== ENCOUNTER 2020-10-18 09:57 | Outpatient (CLI) | payer MEDICARE, MEDICAID, SELFPAY ==
--- NOTE | ~2020-10-18 | US_ITS ---
EXAMINATION: US venous doppler LE RT DATE: 10/18/2020 10:21 INDICATION: Right lower limb pain. TECHNIQUE: Grayscale ultrasound images without and with compression and Doppler ultrasound images of the right lower extremity veins were obtained. COMPARISON: None. FINDINGS: The visualized portions of right common femoral vein, profunda (deep) femoral vein, femoral vein, pop liteal vein, peroneal veins, posterior tibial veins, and greater saphenous vein outflow are patent. IMPRESSION: 1. No deep venous thrombosis. Reviewed, dictated and finalized at location A.
--- NOTE | ~2020-10-18 | XR_ITS ---
EXAMINATION: XR lumbar spine 2-3V EXAM DATE: 10/18/2020 10:40 INDICATION: M54.5 - Low back pain/no trauma. TECHNIQUE: Lumber spine frontal, lateral, lateral L5-S1 projections for interpretation. There is no prior study for comparison. FINDINGS: There is moderate disc disease L5-S1. Mild lumbar facet arthropathy. Minimal anterior wedge d appearance at T11 and T12, chronic or congenital appearance. Minimal aortic arterial sclerosis. The vertebral bodies are aligned in the AP dimension. There are no acute fractures identified. Some righ t-sided bowel anastomosis material or surgical clips. Sacrum, sacroiliac joints, sacral arcuate lines are intact. IMPRESSION: 1. L5-S1 moderate disc disease. 2. Mild lumbar facet arthropathy. Reviewed, dictated and finalized at location B.
--- NOTE | ~2020-10-18 | XR_ITS ---
EXAMINATION: XR hip RT min 3V w AP pelvis EXAM DATE: 10/18/2020 10:39 INDICATION: M25.551 - Pain in right hip/no trauma. TECHNIQUE: Right hip frontal, crosstable lateral and 'frog-leg' projections for interpretation. Front al projection pelvis. There is no prior study for comparison. FINDINGS: Smooth femoral head contours, no radiographic evidence of avascular necrosis. There is mini mal symmetric bilateral hip primary osteoarthritis. There are no acute fractures or dislocations iden tified. There is no subcutaneous gas. The soft tissue is unremarkable. Some right lower quadrant bowel anastomosis material or surgical. IMPRESSION: Minimal symmetric bilateral hip osteoarthritis. Reviewed, dictated and finalized at location B.
== END 2020-10-18 09:58 | disposition home or self-care (01) ==
LOC: CHSIMG 10:00
PROVIDERS: PCP Family Medicine; Visit Provider Family Medicine
DX: M79.604 Pain in right leg (principal); M25.551 Pain in right hip; M54.5 Low back pain
CPT/HCPCS: 72100; 73502; 93971

== ENCOUNTER 2020-10-29 09:53 | Outpatient (RCR) | payer MEDICARE, MEDICAID, SELFPAY ==
--- NOTE | 2020-10-29 12:28 | PTOPEVAL ---
Thank you for referring Ras Hi to [facility].? The patient is scheduled to be seen for therapy? ____x/week for ___ weeks. Please review, sign, date and return this plan of care ROSA. I agree with and certify that the following plan of care is medically necessary. Referring Physician Date Admitting Provider: Attending Provider: Marvin Pinto MD Referring Provider: *PT Outpatient Evaluation Start: 10/29/20 09:53 Freq: Status: Active Protocol: Document 10/29/20 09:53 ACR (Rec: 10/29/20 12:28 ACR [id number]) Therapy Assessment Status Assessment Status Assessment Status Evaluation Outpatient Past Medical History Neurological History Hx Seizures Yes: fever seizures per pt last one when he was 15 Cardiovascular History Hx Coronary Artery Bypass Graft Yes: 12/03/18 Hx Hypercholesterolemia Yes Hx Hypertension Yes Hx Myocardial Infarction Yes: 11/28/18 Respiratory History Hx Respiratory Disorders No Significant History Gastrointestinal History Hx Gastroesophageal Reflux Disease Yes Hx Other Gastrointestinal Disorders Yes: appendicitis this admission Genitourinary History Hx Kidney Stones Yes Musculoskeletal History Hx Orthopedic Surgery Yes: Disc [id number] Hematological History Hx Hematological Disorders No Significant History Endocrine History Hx Endocrine Disorders No Significant History HEENT History Hx Ear Surgery Yes: surgery for ear infection Hx Other HEENT Disorders Yes: hard of hearing both ears Integumentary History Hx Other Skin Disorders Yes: flea bites Reproductive History Hx Reproductive Disorders No Significant History Psychosocial History Hx Psychiatric Disorders No Significant History Pain History History of Any Previous or Ongoing No Significant History Instance of Pain Anesthesia History Hx Anesthesia Reactions No Significant History Evaluation Information Problem Diagnosis LBP, R hip pain Onset 10/08/20 Subjective Information Patient states that he isn't Query Text:As Reported By Patient/ sure why his hip is bothering Family him. He got a Doppler which was negative for blood clots and got an x-ray which showed arthritis. He is getting an MRI on November 07. He is unable to sleep because the pain wakes him up, he cannot walk for a long distance, stand for a period of time, and navigating steps are all
--- NOTE | 2020-11-23 14:53 | PTOPEVAL ---
Thank you for referring Ras Hi to [facility].? The patient is scheduled to be seen for therapy? ____x/week for ___ weeks. Please review, sign, date and return this plan of care ROSA. I agree with and certify that the following plan of care is medically necessary. Referring Physician Date Admitting Provider: Attending Provider: Marvin Pinto MD Referring Provider: *PT Outpatient Evaluation Start: 10/29/20 09:53 Freq: Status: Active Protocol: Document 11/23/20 13:[address] [facility] (Rec: 11/23/20 14:[address] [facility] [id number]) Outpatient Past Medical History Neurological History Hx Seizures Yes: fever seizures per pt last one when he was 15 Cardiovascular History Hx Coronary Artery Bypass Graft Yes: 12/03/18 Hx Hypercholesterolemia Yes Hx Hypertension Yes Hx Myocardial Infarction Yes: 11/28/18 Respiratory History Hx Respiratory Disorders No Significant History Gastrointestinal History Hx Gastroesophageal Reflux Disease Yes Hx Other Gastrointestinal Disorders Yes: appendicitis this admission Genitourinary History Hx Kidney Stones Yes Musculoskeletal History Hx Orthopedic Surgery Yes: Disc [id number] Hematological History Hx Hematological Disorders No Significant History Endocrine History Hx Endocrine Disorders No Significant History HEENT History Hx Ear Surgery Yes: surgery for ear infection Hx Other HEENT Disorders Yes: hard of hearing both ears Integumentary History Hx Other Skin Disorders Yes: flea bites Reproductive History Hx Reproductive Disorders No Significant History Psychosocial History Hx Psychiatric Disorders No Significant History Pain History History of Any Previous or Ongoing No Significant History Instance of Pain Anesthesia History Hx Anesthesia Reactions No Significant History Evaluation Information Problem Diagnosis LBP, R hip pain Onset 10/08/20 Additional Evaluation Detail LEFS = 8% functionally declined Subjective Information patient reports he is doing Query Text:As Reported By Patient/ much better. he reports nearly Family no pain lately. he reports he has been compliant with his back brace wear and exercises at home. Pain Assessment Timing of Pain Assessment Timing of Pain Assessment Assessment Pain Scale Pain Scale Used Numeric (1 - 10) Self Report Pain Assessment Right Hip(s) Reported Pain Level 2 Greatest Pain Intensity 2 Pain Score Pain Score 2: Self Report Interventions Used Interv
== END 2021-01-27 23:59 | disposition home or self-care (01) ==
LOC: CHSPT 09:53
PROVIDERS: PCP Family Medicine; Visit Provider Family Medicine
DX: M25.551 Pain in right hip (principal); M54.5 Low back pain; M79.604 Pain in right leg
CPT/HCPCS: 97014; 97110; 97161; G0283

== ENCOUNTER 2022-06-03 10:41 | Outpatient (CLI) | payer MEDICARE, SELFPAY ==
[2022-06-03 10:56] LABS: Appearance Urine Clear (Clear); Basophils Absolute Auto 0.09 K/mm3 (0.00-0.10); Basophils Percent Auto 0.8 % (0.0-1.0); Bilirubin Urine Negative (Negative); Blood Urine Negative (Negative); Color Urine Light Yellow (Yellow); Eosinophils Absolute Auto 0.25 K/mm3 (0.02-0.50); Eosinophils Percent Auto 2.3 % (1.0-6.0); Glucose Urine UA Negative (Negative); Hemoglobin 13.2 g/dL (14.0-18.0); Immature Granulocyte Absolute 0.09 K/mm3 (0.00-0.00); Immature Granulocyte Percent A 0.8 % (0.0-0.0); Immature Platelet Fraction Pct 9.9 % (1.0-7.0); Ketones Urine Negative (Negative); Leukocyte Esterase Ur Negative (Negative); Lymphocytes Absolute Auto 2.23 K/mm3 (1.10-4.50); Lymphocytes Percent Auto 20.6 % (18.0-42.0); Mean Corpuscular HGB Conc 31.4 g/dL (32.0-36.0); Mean Corpuscular Hemoglobin 20.2 pg (27.0-31.0); Mean Corpuscular Volume 64.2 fL (78.0-102.0); Monocytes Percent Auto 6.5 % (2.0-11.0); Neutrophils Absolute Auto 7.5 K/mm3 (1.7-7.2); Nitrate Urine Negative (Negative); Platelet Count Result 156 K/mm3 (150-420); Protein Urine Negative (Negative); Red Blood Count 6.54 M/mm3 (4.70-6.10); Red Cell Distribution Width 17.9 % (11.6-14.4); Specific Grav Ur 1.025 (1.010-1.020); Urobilinogen Urine 0.2 mg/dL (0.2-1.0); White Blood Count 10.9 K/mm3 (4.8-10.8); pH Urine 5.5 (5.0-8.0)
[2022-06-03 10:59] LABS: Add Urine Microscopic? NO
[2022-06-03 11:30] LABS: Alanine Aminotransferase 26 U/L (16-63); Albumin Level 4.1 g/dL (3.4-5.0); Alkaline Phosphatase 98 U/L (46-116); Anion Gap 8 mmol/L (8-16); Aspartate Amino Transferase 14 U/L (15-37); Bilirubin,Total 0.5 mg/dL (0.00-1.00); Blood Urea Nitrogen 9 mg/dL (7-18); Calcium 8.1 mg/dL (8.5-10.1); Carbon Dioxide 29 mmol/L (21-32); Chloride 106 mmol/L (98-108); Cholesterol 116 mg/dL (0-200); Estimated Glomerular Filt Rate > 60; Glucose 99 mg/dL (70-99); HDL Direct 28 mg/dL (40-60); LDL Cholesterol Calculated 69 mg/dL (<130); Osmolality Calculated 294 mOsm/kg (285-295); Sodium 143 mmol/L (136-145); Thyroid Stimulating Hormone 2.64 uIU/mL (0.36-3.74); Total Protein 7.3 g/dL (6.4-8.2); Triglycerides 94 mg/dL (0-150)
[2022-06-03 15:13] LABS: Ferritin 232 ng/mL (26-388); Iron 77 ug/dL (65-175); Lactate Dehydrogenase 170 U/L (85-227); Percent Iron Saturation 31 % (12-57)
[2022-06-03 15:22] LABS: CRP < 0.5 mg/dL (0.0-0.9)
== END 2022-06-03 10:42 | disposition home or self-care (01) ==
PROVIDERS: PCP Internal Medicine; Visit Provider Internal Medicine
DX: I25.10 Atherosclerotic heart disease of native coronary artery without angina pectoris (principal); D64.9 Anemia, unspecified; E58 Dietary calcium deficiency
CPT/HCPCS: 36415; 80053; 80061; 81003; 82728; 83540; 83550; 83615; 84100; 84443; 85025; 85055; 86140

== ENCOUNTER 2022-06-04 14:47 | Outpatient (CLI) | payer MEDICARE, SELFPAY ==
[2022-06-07 21:02] LABS: Parathyroid Intact 31 pg/mL (14-64)
[2022-06-07 23:58] LABS: Vitamin D 1,25 (OH)2 Total 39 pg/mL (18-72); Vitamin D2 1,25 (OH)2 <8 pg/mL; Vitamin D3 1,25 (OH)2 39 pg/mL
[2022-06-08 21:05] LABS: Vitamin D 25 Hydroxy 15 ng/mL (30-100)
== END 2022-06-04 14:48 | disposition home or self-care (01) ==
PROVIDERS: PCP Internal Medicine; Visit Provider Internal Medicine
DX: D64.9 Anemia, unspecified (principal); E83.50 Unspecified disorder of calcium metabolism
CPT/HCPCS: 36415; 82306; 82330; 82652; 83970

== ENCOUNTER 2023-03-05 11:28 | Outpatient (CLI) | payer MEDICARE, SELFPAY ==
[2023-03-05 11:48] LABS: Hemoglobin 12.7 g/dL (14.0-18.0); Mean Corpuscular HGB Conc 31.8 g/dL (32.0-36.0); Mean Corpuscular Hemoglobin 20.5 pg (27.0-31.0); Mean Corpuscular Volume 64.4 fL (78.0-102.0); Platelet Count Result 149 K/mm3 (150-420); Red Blood Count 6.21 M/mm3 (4.70-6.10); Red Cell Distribution Width 16.8 % (11.6-14.4); White Blood Count 10.9 K/mm3 (4.8-10.8)
[2023-03-05 11:55] LABS: Hemoglobin A1C 5.5 % (<5.7)
[2023-03-05 11:59] LABS: INR 0.9; Prothrombin Time 10.3 Seconds (9.50-12.10)
[2023-03-05 12:30] LABS: Alanine Aminotransferase 39 U/L (16-63); Albumin Level 4.2 g/dL (3.4-5.0); Alkaline Phosphatase 92 U/L (46-116); Anion Gap 6 mmol/L (8-16); Aspartate Amino Transferase 21 U/L (15-37); Bilirubin,Total 0.6 mg/dL (0.00-1.00); Blood Urea Nitrogen 11 mg/dL (7-18); Carbon Dioxide 31 mmol/L (21-32); Chloride 105 mmol/L (98-108); Cholesterol 120 mg/dL (0-200); Creatine Kinase 70 U/L (39-308); Estimated Glomerular Filt Rate > 60; Glucose 93 mg/dL (70-99); HDL Direct 29 mg/dL (40-60); LDL Cholesterol Calculated 75 mg/dL (<130); NT Pro B Type Natriuretic Pept 161 pg/mL (0-125); Osmolality Calculated 293 mOsm/kg (285-295); Potassium 4.3 mmol/L (3.5-5.1); Sodium 142 mmol/L (136-145); Total Protein 7.2 g/dL (6.4-8.2); Triglycerides 82 mg/dL (0-150)
== END 2023-03-05 11:29 | disposition home or self-care (01) ==
LOC: CHSLAB 11:32
PROVIDERS: PCP Internal Medicine; Visit Provider Specialist
DX: R06.00 Dyspnea, unspecified (principal); R73.01 Impaired fasting glucose; Z79.01 Long term (current) use of anticoagulants; E78.5 Hyperlipidemia, unspecified
CPT/HCPCS: 36415; 80053; 80061; 82550; 83036; 83880; 85027; 85055; 85610

== ENCOUNTER 2023-07-06 19:41 | Emergency (ER) | payer MEDICARE, SELFPAY ==
[2023-07-06] VITALS (29 sets, daily range): BP systolic 143–189; BP diastolic 80–108; PULSE 53–88; RESP 18–27; TEMP 36.8–37.6; O2SAT 94–97
--- NOTE | ~2023-07-06 | US_ITS ---
Limited Abdominal Sonogram: Real-time sonographic imaging of the right upper quadrant was performed. Clinical History: Abdominal pain Findings: The liver appears normal with no evidence of mass lesion or bile duct dilatation. Main por faisal vein demonstrates normal direction of flow. The gallbladder is well distended, and demonstrates w all thickening up to 9 mm. No definite gallstone seen. The common bile duct measures 6 mm. The visua lized pancreas, aorta, and IVC are unremarkable. Impression: Gallbladder wall thickening without definite gallstone. This is a nonspecific finding. Correlate for nonspecific gallbladder wall edema or any possibility of acalculous cholecystitis. Reviewed, dictated and finalized at location . Impression: Gallbladder wall thickening without definite gallstone. This is a nonspecific f inding. Correlate for nonspecific gallbladder wall edema or any possibility of acalculous cholecystitis.
--- NOTE | ~2023-07-06 | CT_ITS ---
EXAMINATION: CT abdomen pelvis w con DATE: 07/06/2023 21:08 INDICATION: abdominal pain TECHNIQUE: Computed tomography (CT) of the abdomen and pelvis was performed with 100 mL Omnipaque-350 intravenous contrast. Automated exposure control and iterative reconstruction technique were employe d. The dose-length product was 638.36 mGy-cm. COMPARISON: 01/22/2020, report only. FINDINGS: Lower thorax: Coronary artery calcifications. Sub-6 mm right lower lobe pulmonary nodule. Liver: Subcentimeter hypodensities, too small to characterize but likely represent cysts. Biliary/Gallbladder: Mild gallbladder wall edema/fluid. No stones detected. No bile duct dilation. Pancreas: No mass or duct dilation. Spleen: Normal. Adrenals:No mass. Kidneys: Simple bilateral cysts. Multiple additional subcentimeter hypodensities that also likely rep resent cysts. Punctate nonobstructing left midpole calcification. No hydronephrosis. GI tract: Mild distal esophageal and gastric wall edema. Mild proximal jejunal dilation. C-loop confi guration of a loop of mid jejunum which appears to pass through a mesenteric window. No large bowel d ilation. Status post appendectomy Mild diverticulosis without evidence of diverticulitis. Mesentery/Peritoneum: No ascites, mass, or free air. Retroperitoneum: No mass. Atherosclerotic abdominal aortic and/or arterial calcifications. Pelvis: Pelvic organs are within normal limits. Soft Tissues: Soft tissues and body wall unremarkable. Bones: No acute osseous finding. IMPRESSION: Mild esophagitis/gastritis. Nonspecific gallbladder wall edema. Consider right upper quadrant ultrasound. Findings suspicious for a mesenteric hernia in the left upper quadrant containing a herniated loop of nondilated small bowel are mild upstream dilation. May represent partial obstruction. Early complete C-loop-type obstruction should remain in the differential. Reviewed, dictated and finalized at location K. IMPRESSION: Mild esophagitis/gastritis. Nonspecific gallbladder wall edema. Consider right upper quadrant ultrasound. Findings suspicious for a mesenteric hernia in the left upper quadrant containi ng a herniated loop of nondilated small bowel are mild upstream dilation. May r epresent partial obstruction. Early complete C-loop-type obstruction should rem ain in the differential.
--- NOTE | ~2023-07-06 | XR_ITS ---
Portable upright view of the abdomen Clinical history: NG tube placement Findings: NG tube in satisfactory position. Bowel gas pattern is nonspecific. No evidence for obstruc tion or free air. No abnormal mass lesion or calcification is seen. Osseous structures are intact. Impression: NG tube in satisfactory position. Reviewed, dictated and finalized at location . Impression: NG tube in satisfactory position.
--- NOTE | 2023-07-06 19:47 | ED.GENADULT ---
HPI - General Adult General Chief complaint: Abdominal Pain <Mark Donaldson DO - Last Filed: 07/07/23 07:16> Stated complaint: abdominal pain <Mark Donaldson DO - Last Filed: 07/07/23 07:16> Time Seen by Provider: 07/06/23 19:46 <Mark Donaldson DO - Last Filed: 07/07/23 07:16> History of Present Illness HPI narrative: Ras is a 47M with a PMH of CAD, HLD, levoscoliosis, inguinal hernia, PAD, tobacco abuse, prior appendectomy that presented to the ED with abdominal pain. It is a severe epigastric pain that started this morning that progressed to several episodes of non-bloody vomiting. He had a sold BM this afternoon. No fevers, chills, chest pain, dyspnea, or diarrhea. As the pain and vomiting are getting worse and he could not keep any down he came to the ED. <Mark Donaldson DO - Last Filed: 07/07/23 07:16> Related Data Home medications: Home Medications Medication Instructions Recorded Confirmed clopidogrel 75 mg tablet 75 mg PO DAILY 01/22/20 07/07/23 metoprolol tartrate 50 mg tablet 50 mg PO BID 01/22/20 07/07/23 aspirin 81 mg tablet,delayed 81 mg PO DAILY 01/23/20 07/07/23 release ([place] Low Dose Aspirin) fluticasone propionate 50 1 spray intranasal DAILY 09/30/21 07/07/23 mcg/actuation nasal spray,suspension (Flonase Allergy Relief) sacubitril 24 mg-valsartan 26 mg 0.5 tablet PO BID 02/19/23 07/07/23 tablet (Entresto) <Mark Donaldson DO - Last Filed: 07/07/23 07:16> Allergies/adverse reactions: Allergies Allergy/AdvReac Type Severity Reaction Status Date / Time No Known Allergies Allergy Verified 03/05/23 13:11 <Mark Donaldson DO - Last Filed: 07/07/23 07:16> Review of Systems Review of Systems: All systems reviewed & are unremarkable except as noted in HPI and below <Mark Donaldson DO - Last Filed: 07/07/23 07:16> EUFEMIA Past Medical History Medical History: Medical History CAD (coronary artery disease) Hyperlipidemia Hypertension Nicotine addiction Peripheral vascular disease, unspecified <Mark Donaldson DO - Last Filed: 07/07/23 07:16> Surgical History Surgical History: Surgical History History of ear surgery History of laparoscopic appendectomy Hx of CABG Previous back surgery <Mark Donaldson DO - Last Filed: 07/07/23 07:16> Family History Family History: Family History Father Acute myocardial infarction Asthma Hypertension Heart disease Mother Diabetes mellitus Asthma Hypertension Depression Heart disease Sibling Asthma Diabetes mellitus Hypertension Depression Heart disease Grandparent Diabetes mellitus Hypertension Depression Heart disease Thyroid disease Grandparent Diabetes mellitus Hypertension Heart disease <Mark Donaldson DO - Last Filed: 07/07/23 07:16> Social History Social History: Social History Smoking packs per day: 3.5 Smoking cigarettes per day: 70.0 Years smoked: 28 Smoking pack-years: 98.00 Smoking status: Current every day smoker Tobacco type: cigarettes Smokeless tobacco user: chewing tobacco Alcohol intake: never Substance use: never Lack of Transportation: No Lack of Food: Never True Current Housing: I Have Housing Concerned About Future Housing: No Difficulty Paying Gas/Electric Bills: No Difficulty Paying for Meds: No Currently Unemployed: No Education: High School Diploma/GED Difficulty w/ Childcare or Family Care: No Living arrangements: with family Gender identity (if verbalized by the patient): Male Spiritual care concerns: No <Mark Donaldson DO - Last Filed: 07/07/23 07:16> Exam Const: General: cooperative, healthy appearing, comforta
--- NOTE | 2023-07-06 19:53 | ECG_ITS ---
Measurements Intervals [place] Rate: 61 P: 1 AR: 133 QRS: -34 QRSD: 114 T: 97 QT: 399 QTc: 405 Interpretive Statements SINUS RHYTHM LEFT AXIS DEVIATION [QRS AXIS < -30] MODERATE INTRAVENTRICULAR CONDUCTION DELAY [110+ ms QRS DURATION] NONSPECIFIC ST & T-WAVE ABNORMALITY ABNORMAL ECG COMPARED TO ECG 11/29/2018 16:36:21 T-WAVE ABNORMALITY NOW PRESENT Electronically Signed On 07-07-2023 7:18:04 CDT by Sid Ledesma M.D.
[2023-07-06] MEDS: MORPHINE SULFATE (*CRX) 4 MG/ML INJ IV PUSH ×2 (20:10→22:06)
[2023-07-06] MEDS: ONDANSETRON INJ 4 MG/2 ML VIAL IV PUSH (20:10)
[2023-07-06 20:20] LABS: Basophils Absolute Auto 0.12 K/mm3 (0.00-0.10); Basophils Percent Auto 0.8 % (0.0-1.0); Eosinophils Absolute Auto 0.42 K/mm3 (0.02-0.50); Eosinophils Percent Auto 2.7 % (1.0-6.0); Hemoglobin 13.2 g/dL (14.0-18.0); Immature Granulocyte Absolute 0.23 K/mm3 (0.00-0.00); Immature Granulocyte Percent A 1.5 % (0.0-0.0); Immature Platelet Fraction Pct 8.2 % (1.0-7.0); Lymphocytes Absolute Auto 2.28 K/mm3 (1.10-4.50); Lymphocytes Percent Auto 14.6 % (18.0-42.0); Mean Corpuscular HGB Conc 30.7 g/dL (32-36); Mean Corpuscular Hemoglobin 19.7 pg (27.0-31.0); Mean Corpuscular Volume 64.1 fL (78.0-102.0); Monocytes Absolute Auto 0.99 K/mm3 (0.10-0.90); Monocytes Percent Auto 6.4 % (2.0-11.0); Neutrophils Absolute Auto 11.53 K/mm3 (1.70-7.20); Platelet Count Result 170 K/mm3 (150-420); Red Blood Count 6.71 M/mm3 (4.70-6.10); Red Cell Distribution Width 17.6 % (11.6-14.4); White Blood Count 15.6 K/mm3 (4.8-10.8)
[2023-07-06 20:40] LABS: Alanine Aminotransferase 33 U/L (16-63); Albumin Level 4.2 g/dL (3.4-5.0); Alkaline Phosphatase 83 U/L (46-116); Anion Gap 11 mmol/L (4-12); Aspartate Amino Transferase 18 U/L (15-37); Bilirubin,Total 0.6 mg/dL (0.00-1.00); Blood Urea Nitrogen 12 mg/dL (7-18); Calcium 9.2 mg/dL (8.5-10.1); Carbon Dioxide 26 mmol/L (21-32); Chloride 104 mmol/L (98-108); Estimated Glomerular Filt Rate > 60; Glucose 100 mg/dL (70-99); Lipase 14 U/L (16-77); Magnesium 1.8 mg/dL (1.8-2.4); Osmolality Calculated 291 mOsm/kg (285-295); Potassium 3.8 mmol/L (3.5-5.1); Sodium 141 mmol/L (136-145); Total Protein 7.5 g/dL (6.4-8.2); Troponin I 23.4 ng/L (0.00-60.4)
[2023-07-06 20:41] LABS: CRP < 0.5 mg/dL (0.0-0.9)
[2023-07-06 20:43] LABS: Lactic Acid Reflex 1.2 mmol/L (0.4-2.0)
[2023-07-06] MEDS: LACTATED RINGERS 1,000 ML 999 ML IV CONT (20:52)
--- NOTE | 2023-07-06 20:53 | PC.NURSE ---
patient to CT scan via wheelchair by [employer].
[2023-07-06 20:56] LABS: SARS-CoV-2 RNA PCR Negative (Negative)
[2023-07-06 21:04] LABS: Influenza A QL RT-PCR Negative (Negative); Influenza B QL RT-PCR Negative (Negative); RSV RNA, RT-PCR Negative (Negative)
--- NOTE | 2023-07-06 22:10 | PC.NURSE ---
patient medicated for pain at this time, see MAR. patient mother remains at bedside. patient and his mother given warm blanket per request and lights dimmed. patient update provided including we are awaiting CT results.
--- NOTE | 2023-07-06 22:55 | PC.NURSE ---
patient up to urinal. mother at bedside. vss. rn monitoring. patient awaiting results and plan. call light within reach.
--- NOTE | 2023-07-06 23:09 | PC.NURSE ---
patient mother leaving at this time to run another family member home. RN monitoring. call light within reach.
--- NOTE | 2023-07-06 23:20 | PC.NURSE ---
urine specimen sent to lab. Dr. Donaldson at patient bedside for update.
[2023-07-06 23:30] LABS: Appearance Urine Clear (Clear); Bilirubin Urine Negative (Negative); Blood Urine Negative (Negative); Color Urine Light Yellow (Yellow); Glucose Urine UA Negative (Negative); Ketones Urine 1+ (Negative); Leukocyte Esterase Ur Negative LEU/UL (Negative); Nitrate Urine Negative (Negative); Protein Urine Negative (Negative); Urobilinogen Urine 0.2 mg/dL (0.2-1.0)
[2023-07-06] MEDS: MAG HYDROX/ALUMINUM HYD/SIMETH 30 ML, PHENobarb/HYOSCY/ATROPINE/SCOP 32.4 MG, LIDOCAINE... PO (23:36)
[2023-07-06 23:39] LABS: Add Urine Microscopic? YES; RBC Urine 0-2 /hpf (0-2); Squamous Epithelial Cell Urine None seen /hpf (Few); WBC Urine 0-3 /hpf (0-3)
[2023-07-06 23:40] LABS: Bacteria Urine None seen /hpf
--- NOTE | 2023-07-06 23:42 | PC.NURSE ---
patient medicated, see MANAS. RN monitoring. update provided.
[2023-07-07] VITALS (73 sets, daily range): BP systolic 150–174; BP diastolic 77–109; PULSE 47–102; RESP 11–21; TEMP 36.5–36.7; O2SAT 90–100
--- NOTE | 2023-07-07 00:35 | PC.NURSE ---
NG tube inserted into patient left nare. RN attempted insertion into right nare initially however tube would not pass. Patient tolerated procedure fair. RN phoned transfer facility for patient admission. Patient mother updated on plan of care including diagnosis and NG tube insertion in addition to likely transfer pending.
[2023-07-07] MEDS: LORazepam INJ (*CRX) 2 MG/ML VIAL 0.5 MG IV PUSH (01:14)
[2023-07-07] MEDS: ONDANSETRON INJ 4 MG/2 ML VIAL IV PUSH (01:14)
--- NOTE | 2023-07-07 01:23 | PC.NURSE ---
Patient belongings list completed, patient moved to hospital bed in ED 6 while awaiting bed at [facility]. Patient awake and alert, medicated per order, see MAR. VSS. RN monitoring. call light within reach. NG tube remains patent with yellow contents in tubing.
--- NOTE | 2023-07-07 02:32 | PC.NURSE ---
patient asleep on hospital bed. RN monitoring. awaiting bed at transfer facility.
--- NOTE | 2023-07-07 03:55 | PC.NURSE ---
patient resting quietly on stretcher. calm and cooperative with vss. NG remains to wall suction at low with scant amount of yellow colored output. patient denies further needs. RN monitoring. call light within reach.
--- NOTE | 2023-07-07 04:26 | PC.NURSE ---
patient sleeping on stretcher. RN monitoring.
--- NOTE | 2023-07-07 05:41 | PC.NURSE ---
patient resting. RN monitoring.
--- NOTE | 2023-07-07 06:29 | PC.NURSE ---
patient updated, resting on hospital bed states his pain is not as bad. vitals stable.
--- NOTE | 2023-07-07 07:15 | PC.NURSE ---
patient report given to GRACE Lopez for continuation of care for day shift.
--- NOTE | 2023-07-07 07:52 | PC.NURSE ---
US AT BEDSIDE AT THIS TIME. ERP HAS UPDATED PT ON STATUS. NAD NOTED. WILL CONTINUE TO MONITOR.
--- NOTE | 2023-07-07 08:48 | PC.NURSE ---
PT IS SITTING UP ON STRETCHER WITH NG TUBE DRAINING GREEN FLUID. PT HAS APPROX 200ML OUTPUT NOTED. PT REPORTS PAIN IS RETURNING /, ERP TO BE NOTIFIED. PT IS AWAITING BLOOD CULTURES TO BE OBTAINED PRIOR TO STARTING ABX, LAB NOTIFIED. MOUTH SWABS PROVIDED. PT UPDATED ON NPO STATUS. WILL CONTINUE TO MONITOR.
[2023-07-07] MEDS: PIPERACILLN/TAZ 3.375GM/NS50ML 3.375 GM/50 ML BAG IVPB (09:07)
[2023-07-07] MEDS: MORPHINE SULFATE (*CRX) 2 MG/ML INJ IV PUSH (09:09)
--- NOTE | 2023-07-07 11:00 | PC.NURSE ---
SPOKE WITH MOTHER AND PT, UPDATED ON BED STATUS. MOTHER AND PT ARE REQUESTING TO AWAIT BED AT [facility]. ADVISED MOTHER THIS WOULD BE THE PLAN, PENDING SURGEON REQUESTS. PT IS AWAITING RETURN CALL FROM SURGEON AT THIS TIME. ERP IS AWARE AND WILL CONTINUE TO MONITOR.
--- NOTE | 2023-07-07 14:12 | PC.NURSE ---
NO CHANGE IN PT STATUS, HE CONTINUES TO AWAIT A ROOM ASSIGNMENT AT [facility]. PT DENIES ANY NEEDS OR COMPLAINTS AT THIS TIME. PT HAS HAD 500ML OF GREEN LIQUID OUTPUT FROM NG TUBE AND A TOTAL OF 600 ML OF URINE OUTPUT. WILL CONTINUE TO MONITOR.
--- NOTE | 2023-07-07 15:08 | PC.NURSE ---
NO CHANGE IN PT STATUS. PT CONTINUES TO REST ON STRETCHER AWAITING ROOM ASSIGNMENT. NO UPDATES HAVE BEEN PROVIDED PER [facility]. ERP IS TO EVALUATE HOME MEDICATIONS, AWAITING ANY ORDERS. PT DENIES ANY NEEDS OR COMPLAINTS. WILL CONTINUE TO MONITOR.
--- NOTE | 2023-07-07 15:49 | PC.NURSE ---
MOTHER NOTIFIED OF TRANSFER AT PT REQUEST.
--- NOTE | 2023-07-13 12:59 | PC.NURSE ---
FINAL BLOOD CULTURE REPORT: No growth after 5 days.
== END 2023-07-07 15:49 | disposition short-term general hospital (02) ==
PROVIDERS: Family Medicine; Emergency Provider Emergency Medicine; PCP Internal Medicine
DX: K81.9 Cholecystitis, unspecified (principal); K56.600 Partial intestinal obstruction, unspecified as to cause; I25.10 Atherosclerotic heart disease of native coronary artery without angina pectoris; E78.5 Hyperlipidemia, unspecified; I10 Essential (primary) hypertension; F17.220 Nicotine dependence, chewing tobacco, uncomplicated; F17.210 Nicotine dependence, cigarettes, uncomplicated; Z20.822 Contact with and (suspected) exposure to COVID-19
CPT/HCPCS: 36415; 74177; 76705; 80053; 81001; 83605; 83690; 83735; 84484; 85025; 85055; 86140; 87040; 87637; 93005; 96361; 96365; 96375; 96376; 99285; J2060; J2270; J2405; J2543; J7120; Q9967

== ENCOUNTER 2023-07-07 16:43 | Inpatient (IN) | payer MEDICARE, SELFPAY ==
--- NOTE | ~2023-07-07 | XR_ITS ---
EXAM: XR abdomen gastric tube insert DATE: 07/07/2023 18:28 HISTORY: NG placement . COMPARISON: None available. FINDINGS: Intact sternotomy wires. NG tube, tip projecting over the distal antrum. Clear lung bases. Normal bowel gas pattern. No organomegaly. No abnormal abdominal calcification. Regional bones and so ft tissues normal for age. IMPRESSION: NG tube, in good position. Reviewed, dictated and finalized at location K. IMPRESSION: NG tube, in good position.
--- NOTE | ~2023-07-07 | XR_ITS ---
EXAMINATION: XR sm bowel follow through DATE: 07/08/2023 10:54 INDICATION: Small bowel obstruction. TECHNIQUE: Oral contrast was administered, and a time course of radiographs of the abdomen was obtain ed. Fluoroscopy of the small bowel was not performed. Fluoroscopy exposure time was 0 minutes. The to faisal number of images was 5. COMPARISON: CT abdomen and pelvis 07/06/2023 FINDINGS: There are dilated loops of jejunum. There is no abnormal mass or stricture. Transit time from the sto mach to proximal colon was approximately 1 hour. IMPRESSION: 1. Mildly dilated jejunum with normal transit time of contrast to the colon, likely adynamic ileus. C T images demonstrate a short jejunal intussusception (typically transient). Reviewed, dictated and finalized at location A. IMPRESSION: 1. Mildly dilated jejunum with normal transit time of contrast to the colon, li analilia adynamic ileus. CT images demonstrate a short jejunal intussusception (typ ically transient).
--- NOTE | 2023-07-07 16:28 | ADMGEN ---
This patient, Ras Hi, was admitted to Medical Room 346-01. Patient/family oriented to hospital policies and general routines including ID bracelet, bed and alarms, visiting hours, pain management, procedures, bathroom and other care routines, personal items, smoking policy, room service/diet, and visiting hours. Information on how to activate the Rapid Response Team has been discussed. Patient/Family are encouraged to report perceived risks to care and to ask questions if they do not understand what they are told or what they should do.
--- NOTE | 2023-07-07 16:47 | PM.IMHP ---
H&P: HPI History of Present Illness Date/Time: 07/07/23 17:15 Chief Complaint: Bowel obstruction. Narrative: This is a 47-year-old male with coronary artery disease status post CABG, congestive heart failure, hypertension, and dyslipidemia who is being admitted to the medical floor from an outside facility for surgery consultation after he was found to have evidence of bowel obstruction on imaging. The patient provides the following history. He presented to the outside emergency department yesterday evening for evaluation of severe, nonradiating epigastric pain which started earlier that morning. It felt like severe heartburn. Associated symptoms include nausea and multiple episodes of emesis; he cannot say whether not there was any blood or coffee-ground like emesis. He had a normal bowel movement yesterday afternoon. He denies fever, chills, sweats, chest pain, shortness of breath, hematemesis, melena, and dysuria. He was afebrile on arrival to the outside ED. Blood pressures have been running in the 150s to 170s systolic. CMP was pretty unremarkable. CBC was significant for a WBC count of 15.6, hemoglobin 13.2, MCV 64.1, and a platelet count of 170. CT of the abdomen and pelvis showed mild esophagitis/gastritis, nonspecific gallbladder wall edema, and findings suspicious for mesenteric hernia with possible partial obstruction or early complete C loop type obstruction. Transfer was initiated to [facility] and surgery accepted him in consult. He is being admitted in this setting for further treatment and evaluation. Review of Systems Review of Systems: 12 systems were reviewed and are negative except for as per HPI. [facility] Past Medical History Medical History Coronary artery disease Hyperlipidemia Hypertension Kidney stones Microcytic anemia Nicotine addiction Peripheral vascular disease, unspecified Tobacco abuse Surgical History Surgical History History of back surgery (2012) Disc replacement. History of coronary artery bypass graft (11/2018) History of ear surgery History of laparoscopic appendectomy (01/2020) Family History Family History Father Acute myocardial infarction Asthma Hypertension Heart disease Mother Diabetes mellitus Asthma Hypertension Depression Heart disease Sibling Asthma Diabetes mellitus Hypertension Depression Heart disease Grandparent Diabetes mellitus Hypertension Depression Heart disease Thyroid disease Grandparent Diabetes mellitus Hypertension Heart disease Social History Social History Social History: Surrogate medical decision maker: Emily Hi, mother. Code status: Full code. Smoking packs per day: 1.5 Smoking cigarettes per day: 30.0 Years smoked: 28 Smoking pack-years: 42.00 Smoking status: Current every day smoker Tobacco type: cigarettes Alcohol intake: never Substance use: never Do You Feel Safe in your Home?: Yes Lack of Transportation: No Lack of Food: Never True Current Housing: I Have Housing Concerned About Future Housing: No Difficulty Paying Gas/Electric Bills: No Difficulty Paying for Meds: No Currently Unemployed: No Education: High School Diploma/GED Difficulty w/ Childcare or Family Care: No Living arrangements: with family Spiritual care concerns: No Meds Home Medications and Allergies Home Medications Medication Instructions Recorded Confirmed Type clopidogrel 75 mg tablet 75 mg PO DAILY 01/22/20 07/07/23 History metoprolol tartrate 50 mg tablet 50 mg PO BID 01/22/20 07/07/23 History aspirin 81 mg tablet,delayed 81 mg PO DAILY 01/23/20 07/07/23 History release ([facility] Low Dose Aspirin) fluticasone propionate 50 1 spray intranasal DAILY 09/30/21
[2023-07-07 17:18] LABS: Basophils Absolute Auto 0.1 K/mm3 (0.0-0.1); Basophils Percent Auto 0.6 % (0.2-1.2); Eosinophils Absolute Auto 0.1 K/mm3 (0-0.3); Eosinophils Percent Auto 0.4 % (0-4.4); Hematocrit 41.2 % (42.0-52.0); Hemoglobin 13.1 g/dL (14.0-18.0); Immature Granulocyte Absolute 0.13 K/mm3 (0.00-0.031); Immature Granulocyte Percent A 0.9 % (0-0.5); Lymphocytes Absolute Auto 1.74 K/mm3 (0.9-3.2); Lymphocytes Percent Auto 12.5 % (18.3-44.2); Mean Corpuscular HGB Conc 31.8 g/dl (32-36); Mean Corpuscular Hemoglobin 20.4 pg (26-34); Mean Corpuscular Volume 64.2 fl (80-100); Monocytes Absolute Auto 1.4 K/mm3 (0.1-0.6); Neutrophils Absolute Auto 10.5 K/mm3 (1.3-6.7); Neutrophils Percent Auto 75.6 % (45.5-73.1); Platelet Count Result 159 k/mm3 (150-375); Red Blood Count 6.42 M/mm3 (4.6-6.20); Red Cell Distribution Width 18.3 % (11.5-14.5); White Blood Count 13.9 K/mm3 (4.5-10.0)
[2023-07-07 17:46] LABS: Anion Gap 9 mmol/L (4-12); Blood Urea Nitrogen 13 mg/dL (9-20); Calcium 9.5 mg/dL (8.4-10.2); Carbon Dioxide 26 mmol/L (22-30); Chloride 103 mmol/L (98-107); Estimated Glomerular Filt Rate > 60; Glucose 102 mg/dL (65-110); Sodium 138 mmol/L (137-145)
--- NOTE | 2023-07-07 17:55 | PM.CNGS ---
Assessment and Plan Assessment and plan (1) Bowel obstruction: Qualifiers: Intestinal obstruction extent: partial Intestinal obstruction type: unspecified Qualified Code(s): K56.600 - Partial intestinal obstruction, unspecified as to cause Code(s): K56.609 - Unspecified intestinal obstruction, unspecified as to partial versus complete obstruction Status: Acute Assessment and Plan: I have reviewed the CT and discussed the findings with the patient. He has a possible early small bowel obstruction in the proximal jejunum based on the CT findings. The patient however does not present like a typical bowel obstruction. He is still moving his bowels and passing flatus. NG tube was placed in the emergency department. Will continue NG decompression on low intermittent suction. Will plan for Gastrografin small-bowel follow-through tomorrow. Discussed with patient that if there still is an obstruction, then he might require surgical intervention. Patient is on Plavix for coronary artery disease. Will be at increased bleeding risk if surgery is done emergently. (2) Coronary artery disease: Code(s): I25.10 - Atherosclerotic heart disease of [place] coronary artery without angina pectoris Status: Acute (3) Tobacco abuse: Code(s): Z72.0 - Tobacco use Status: Acute (4) long-term (current) use of antithrombotics/antiplatelets: Code(s): Z79.02 - long-term (current) use of antithrombotics/antiplatelets Status: Acute History of Present Illness Consult details Consult date: 07/07/23 Reason for consult: abdominal pain Requesting physician: Adolfo Boyer MD Narrative: This is a 47-year-old man asked to see for acute onset abdominal pain that started yesterday. He states that he began having acute abdominal pain across his mid abdomen have free 1st woke up yesterday morning. He was also experiencing nausea and vomiting. He does not recall any particular food that he ate that could have caused this. He denies any bloating. He denies any change in bowel habits and states that he had a normal solid bowel movement yesterday and has had 2 bowel movements since going to the [facility]. He is also passing flatus. Patient has never had any symptoms like this in the past. His only abdominal surgery was a laparoscopic appendectomy about [address] was obtained in the emergency department and this showed evidence of a possible partial bowel obstruction. It also showed some gallbladder wall thickening. An ultrasound showed no evidence of cholelithiasis and mild gallbladder wall thickening. The patient was transferred to [facility] for further treatment. an NG tube was placed in [facility] while awaiting a bed. Patient is having some mild periumbilical pain but denies any right upper quadrant pain. Review of Systems Review of Systems: All systems reviewed & are unremarkable except as noted in HPI and below Constitutional: Constitutional: Denies chills and Denies fever(s) Eyes: Eyes: Denies change in vision ENT: Denies hearing loss, Denies neck pain and Denies sore throat Cardiovascular: Cardiovascular: Denies chest pain and Denies dyspnea Respiratory: Respiratory: Denies cough, Denies dyspnea and Denies wheezing Gastrointestinal: Gastrointestinal: Reports as per HPI Genitourinary: Genitourinary: Denies hematuria and Denies dysuria Musculoskeletal: Musculoskeletal: Denies arthralgias, Denies joint swelling and Denies neck pain Allergic/Immunologic: Allergic/Immunologic: Denies wheezing [facility] Past Medical History Medical History Coronary artery disease Hyperlipidemia Hypertension Kidney stones Microcytic anemia Nicotine addiction Peripheral vascular disease, unspecified Tobacco abuse Surgical History Surgical History History of
[2023-07-07 17:56] LABS: Platelet Estimate Adequate (Adequate)
[2023-07-07 17:57] LABS: Anisocytosis 1+; Ovalocytes 1+; Schistocytes None Seen
[2023-07-07] MEDS: LACTATED RINGERS 1,000 ML 125 ML IV CONT (18:28)
[2023-07-07 20:00] VITALS: PULSE 82
[2023-07-07 20:06] LABS: Folic Acid 6.4 ng/mL (2.76->20)
[2023-07-07 20:15] LABS: Iron 39 ug/dL (49-181)
[2023-07-07 20:19] VITALS: BP 152/99; PULSE 74; RESP 15; TEMP 36.5; O2SAT 97
[2023-07-07 20:23] LABS: Percent Iron Saturation 13 % (20-50)
[2023-07-07] MEDS: PANTOPRAZOLE SODIUM IV 40 MG VIAL IV PUSH (20:28)
[2023-07-07] MEDS: MORPHINE SULFATE (*CRX) 2 MG/ML INJ IV PUSH (20:29)
[2023-07-07 20:31] VITALS: PULSE 74
[2023-07-07] MEDS: METOPROLOL TARTRATE INJ 5 MG/5 ML VIAL IV PUSH (20:31)
[2023-07-08] VITALS (15 sets, daily range): BP systolic 131–146; BP diastolic 81–90; PULSE 62–119; RESP 12–18; TEMP 36.4–36.8; O2SAT 95–99
[2023-07-08] MEDS: METOPROLOL TARTRATE INJ 5 MG/5 ML VIAL IV PUSH ×3 (00:30→11:19)
[2023-07-08] MEDS: LACTATED RINGERS 1,000 ML 125 ML IV CONT (02:30)
[2023-07-08 05:40] LABS: Hematocrit 39.1 % (42.0-52.0); Hemoglobin 12.5 g/dL (14.0-18.0); Mean Corpuscular Hemoglobin 20.5 pg (26-34); Platelet Count Result 150 k/mm3 (150-375); Red Blood Count 6.11 M/mm3 (4.6-6.20); Red Cell Distribution Width 17.6 % (11.5-14.5); White Blood Count 11.8 K/mm3 (4.5-10.0)
[2023-07-08 05:50] LABS: Anion Gap 6 mmol/L (4-12); Blood Urea Nitrogen 14 mg/dL (9-20); Calcium 9.2 mg/dL (8.4-10.2); Carbon Dioxide 26 mmol/L (22-30); Chloride 105 mmol/L (98-107); Estimated Glomerular Filt Rate > 60; Glucose 102 mg/dL (65-110); Magnesium 2.1 mg/dL (1.6-2.3); Potassium 4.1 mmol/L (3.4-5.0); Sodium 137 mmol/L (137-145)
[2023-07-08] MEDS: PANTOPRAZOLE SODIUM IV 40 MG VIAL IV PUSH ×2 (08:06→21:03)
[2023-07-08] MEDS: FLUTICASONE PROPIONATE 0.05% NA SPR 16 GM BTL (*BKC) 1 SPRAY NASAL (08:06)
[2023-07-08 11:46] LABS: IFOB Positive Control Positive; Immunochemical Fecal Occult Bl Negative (N)
--- NOTE | 2023-07-08 13:52 | PM.IMPN ---
Progress Note: A&P Assessment and Plan (1) Esophagitis with gastritis: Code(s): K29.70 - Gastritis, unspecified, without bleeding; K20.90 - Esophagitis, unspecified without bleeding Status: Acute (2) Bowel obstruction: Qualifiers: Intestinal obstruction extent: partial Intestinal obstruction type: unspecified Qualified Code(s): K56.600 - Partial intestinal obstruction, unspecified as to cause Code(s): K56.609 - Unspecified intestinal obstruction, unspecified as to partial versus complete obstruction Status: Inactive (3) Thickening of wall of gallbladder: Code(s): K82.8 - Other specified diseases of gallbladder Status: Acute (4) Microcytic anemia: Code(s): D50.9 - Iron deficiency anemia, unspecified Status: Acute (5) Coronary artery disease: Code(s): I25.10 - Atherosclerotic heart disease of [place] coronary artery without angina pectoris Status: Acute (6) Hypertension: Code(s): I10 - Essential (primary) hypertension Status: Acute (7) Hyperlipidemia: Code(s): E78.5 - Hyperlipidemia, unspecified Status: Acute (8) Tobacco abuse: Code(s): Z72.0 - Tobacco use Status: Acute Plan The patient presented to the outside facility yesterday evening for evaluation of abdominal pain as detailed in HPI. Labs, imaging, EKG, and all reports were personally reviewed. CT scan showed findings of esophagitis/gastritis which would explain the epigastric discomfort, nausea, and vomiting. Gallbladder wall is thickened on CT and ultrasound which may indicate acalculous cholecystitis. There is also findings suspicious for partial obstruction or early complete Pt had bowel movement following Small bowel follow thru Can remove NG tube and start clear liquids today as per surgery team Subjective Date/time seen: 07/08/23 13:52 Interval history: 47-year-old male with coronary artery disease status post CABG, congestive heart failure, hypertension, and dyslipidemia who is being admitted to the medical floor from an outside facility for surgery consultation after he was found to have evidence of bowel obstruction on imaging. Pt had bowel movement after small bowel follow thru ok to remove NG tube and start clears as per surgery team Review of Systems Review of Systems: Pt feeling better Exam Narrative: General: chronically ill middle aged male . Respiratory: Lung sounds are a bit diminished but are otherwise clear to auscultation. Cardiovascular: Regular rate and rhythm with S1-S2. Gastrointestinal: Abdomen is soft and perhaps mildly distended with positive bowel sounds. He is tender to palpation in the epigastric and periumbilical region. No guarding or rebound tenderness. Skin: Warm and dry. Extremities: No cyanosis, clubbing, or edema. Radial and pedal pulses intact. Neurological: Alert. Cranial nerves 2-12 are grossly intact. No gross focal deficits to casual conversation. Psychiatric: Appropriate mood and affect. Objective Data Vital Signs Vital Signs: Vital Signs - 24 hr 07/07/23 20:19 07/07/23 20:31 07/07/23 20:20 Temperature 36.5 C Pulse Rate 74 74 Respiratory Rate 15 Blood Pressure 152/99 H Pulse Oximetry 97 Oxygen Delivery Room Air 07/07/23 20:00 07/08/23 00:24 07/08/23 00:30 Temperature 36.8 C Pulse Rate 82 71 71 Respiratory Rate 16 Blood Pressure 138/82 Pulse Oximetry 96 Oxygen Delivery 07/08/23 00:00 07/08/23 04:00 07/08/23 05:52 Temperature 36.4 C L Pulse Rate 67 63 70 Respiratory Rate 12 Blood Pressure 146/82 H Pulse Oximetry 95 Oxygen Delivery 07/08/23 05:54 07/08/23 08:06 07/08/23 11:41 Temperature Pulse Rate 70 88 Respiratory Rate Blood Pressure Pulse Oximetry Oxygen Delivery Room Air 07/08/23 11:19 Temperature Pulse Rate 119 H Respiratory Rate Blood Pressure Pulse Oximetry Oxygen Delivery Intake
[2023-07-08] MEDS: LACTATED RINGERS 1,000 ML 50 ML IV CONT (14:18)
[2023-07-08] MEDS: ATORVASTATIN 40 MG TABLET PO (14:19)
[2023-07-08] MEDS: CLOPIDOGREL BISULFATE 75 MG TABLET PO (14:19)
[2023-07-08] MEDS: ASPIRIN 81 MG ENTERIC TABLET PO (14:19)
--- NOTE | 2023-07-08 14:30 | PM.PNGS ---
Progress Note: A&P Assessment and Plan (1) Bowel obstruction: Qualifiers: Intestinal obstruction extent: partial Intestinal obstruction type: unspecified Qualified Code(s): K56.600 - Partial intestinal obstruction, unspecified as to cause Code(s): K56.609 - Unspecified intestinal obstruction, unspecified as to partial versus complete obstruction Status: Inactive Assessment and Plan: SBFT suggests ileus, showed normal transit to the colon in 1 hour. Will remove NG tube and start clear liquids. (2) Coronary artery disease: Code(s): I25.10 - Atherosclerotic heart disease of [place] coronary artery without angina pectoris Status: Acute (3) Tobacco abuse: Code(s): Z72.0 - Tobacco use Status: Acute (4) nursing home (current) use of antithrombotics/antiplatelets: Code(s): Z79.02 - nursing home (current) use of antithrombotics/antiplatelets Status: Acute Plan I have discussed the patient's case and plan of care with Dr. Wolf. Subjective Subjective Date/Time Seen: 07/08/23 14:30 Patient reports: feels better, flatus and bowel movement Interval history: Patient seen after small bowel follow through. He has 3 BMs and feeling better. No abdominal pain, nausea, or bloating. Exam Const: General: No acute distress Orientation/consciousness: patient oriented x3 GI: Inspection: non-distended GI Palp: Yes Soft to palpation, No Tenderness to palpation present (GI), No Guarding due to palpation present (GI) and No Rebound tenderness present Auscultation: normal bowel sounds Objective Data Vital Signs Vital Signs: Vital Signs - 24 hr 07/07/23 20:19 07/07/23 20:31 07/07/23 20:20 Temperature 97.7 F Pulse Rate 74 74 Respiratory Rate 15 Blood Pressure 152/99 H Pulse Oximetry 97 Oxygen Delivery Room Air 07/07/23 20:00 07/08/23 00:24 07/08/23 00:30 Temperature 98.2 F Pulse Rate 82 71 71 Respiratory Rate 16 Blood Pressure 138/82 Pulse Oximetry 96 Oxygen Delivery 07/08/23 00:00 07/08/23 04:00 07/08/23 05:52 Temperature 97.5 F L Pulse Rate 67 63 70 Respiratory Rate 12 Blood Pressure 146/82 H Pulse Oximetry 95 Oxygen Delivery 07/08/23 05:54 07/08/23 08:06 07/08/23 11:41 Temperature Pulse Rate 70 88 Respiratory Rate Blood Pressure Pulse Oximetry Oxygen Delivery Room Air 07/08/23 11:19 Temperature Pulse Rate 119 H Respiratory Rate Blood Pressure Pulse Oximetry Oxygen Delivery Intake/Output Intake/Output: Intake & Output 07/05/23 07/06/23 07/07/23 07/08/23 23:59 23:59 23:59 23:59 Intake Total 1937.5 Output Total 400 375 Balance -400 1562.5 Meds/Results Medications: Active Medications Generic Name Dose Route Start Last Admin Trade Name Freq PRN Reason Stop Dose Admin Aspirin 81 mg 07/08/23 14:10 07/08/23 14:19 Aspirin 81 Mg Enteric Tablet PO 81 mg DAILY CHAVA Administration Atorvastatin Calcium 40 mg 07/08/23 14:10 07/08/23 14:19 Atorvastatin 40 Mg Tablet PO 08/08/23 14:09 40 mg DAILY CHAVA Administration Clopidogrel Bisulfate 75 mg 07/08/23 14:10 07/08/23 14:19 Clopidogrel Bisulfate 75 Mg Tablet PO 75 mg DAILY CHAVA Administration Ezetimibe 10 mg 07/08/23 14:10 Ezetimibe 10 Mg Tablet PO DAILY CHAVA Fluticasone Propionate 1 spray 07/08/23 09:00 07/08/23 08:06 Fluticasone Propionate 0.05% Na Spr 16 Gm Btl (*Bkc) NASAL 1 spray DAILY CHAVA Administration Lactated Ringer's 1,000 mls @ 50 mls/hr 07/07/23 17:50 07/08/23 14:18 Lr - Lactated Ringers Iv IV CONT 50 mls/hr .Q20H CHAVA Administration Metoprolol Tartrate 50 mg 07/08/23 21:00 Metoprolol Tartrate 50 Mg Tab PO Q12HR CHAVA Morphine Sulfate 2 mg 07/07/23 16:43 07/07/23 20:29 Morphine Sulfate (*Crx) 2 Mg/Ml Inj IV PUSH 2 mg Q4H PRN Administration Pain Rated 7-10 Ondansetron HCl 4 mg 07/07/23 16:43 Ondansetron Inj
[2023-07-08] MEDS: EZETIMIBE 10 MG TABLET PO (16:02)
--- NOTE | 2023-07-08 17:06 | WPDGICN ---
Assessment and Plan Assessment and plan (1) Esophagitis with gastritis: Code(s): K29.70 - Gastritis, unspecified, without bleeding; K20.90 - Esophagitis, unspecified without bleeding Status: Acute Assessment and Plan: nausea and vomiting improving, with acute onset likely related to SBO. CT scan showed Mild esophagitis/gastritis. continue Pantoprazole 40 mg IV BID and discharge home or oral PPI daily. Can proceed with EGD as outpatient. (2) Microcytic anemia: Code(s): D50.9 - Iron deficiency anemia, unspecified Status: Acute Assessment and Plan: Microcytic anemia noted on labs with HGb of 12.5. MCV of 64.0 iron saturation low t 13%, Iron low at 39, TIBC and Ferritin WNLs. Vitamin B12 and folate WNLs. denies any overt blood loss. will follow H&H. can complete EGD/Colonoscopy as out patient unless overt blood notice or sudden drop in H&H. (3) Bowel obstruction: Qualifiers: Intestinal obstruction extent: partial Intestinal obstruction type: unspecified Qualified Code(s): K56.600 - Partial intestinal obstruction, unspecified as to cause Code(s): K56.609 - Unspecified intestinal obstruction, unspecified as to partial versus complete obstruction Status: Inactive Assessment and Plan: -followed by surgery. -NG tube removed today. (4) Coronary artery disease: Code(s): I25.10 - Atherosclerotic heart disease of [place] coronary artery without angina pectoris Status: Acute (5) Tobacco abuse: Code(s): Z72.0 - Tobacco use Status: Acute (6) [facility] (current) use of antithrombotics/antiplatelets: Code(s): Z79.02 - [facility] (current) use of antithrombotics/antiplatelets Status: Acute GI Consult Note Consult date/time: 07/08/23 17:06 Reason for consult: gastritis/esophagitis, microcytic anemia HPI: Ras Hi is a 47 year old male admitted to [facility] for SBO. Pt reports symptoms started abruptly with severe nausea and vomiting after eating. Vomiting was yellow acid. CT scan showed findings of Mild esophagitis/gastritis. Nonspecific gallbladder wall edema, and Findings suspicious for a mesenteric hernia in the left upper quadrant containing a herniated loop of nondilated small bowel are mild upstream dilation. May represent partial obstruction. Early complete C-loop-type obstruction should remain in the differential. NG tube was placed in ER. abdominal US showed Gallbladder wall thickening without definite gallstone. This is a nonspecific finding. No ductal dilations. LFTs wnls. Microcytic anemia noted on labs with HGb of 12.5. MCV of 64.0 iron saturation low t 13%, Iron low at 39, TIBC and Ferritin WNLs. Vitamin B12 and folate WNLs. Currently on Plavix 75 mg daily and baby aspirin s/p CABG He denies any overt blood loss. He denies any prior hx of anemia. He reports chronic acid reflux that is worse after eating. this is not new and has been going on for years. he takes nothing for this. He has regular BM daily and denies any Black or bloody stools. Never had EGD/Colonoscopy. No family hx of CRC/IBD. Review of Systems Constitutional: Constitutional: Reports fatigue Eyes: Eyes: Denies blurry vision ENT: Reports Normal hearing present Cardiovascular: Cardiovascular: Reports chest pain Respiratory: Respiratory: Denies cough Gastrointestinal: Gastrointestinal: Denies constipation, Denies diarrhea and Reports vomiting Genitourinary: Genitourinary: Denies urinary frequency Musculoskeletal: Musculoskeletal: Reports back pain Integumentary/Breasts: Skin/Breast: Denies rash Neurologic: Denies confusion Psychiatric: Psychiatric: Denies confusion [facility] Past Medical History Medical History Coronary artery disease Hyperlipidemia Hypertension Kidney stones Microcytic anemia Nicotine addiction Peripheral vascular disease, unspecified Tobacco
[2023-07-08] MEDS: METOPROLOL TARTRATE 50 MG TAB PO (21:01)
[2023-07-08] MEDS: SACUBITRIL/VALSARTAN 12-13 MG TABLET 1 TAB PO (21:03)
[2023-07-09] VITALS: PULSE 61
[2023-07-09 04:00] VITALS: PULSE 64
[2023-07-09 06:00] VITALS: BP 126/70; PULSE 73; RESP 18; TEMP 36.5; O2SAT 97
[2023-07-09 06:04] LABS: Hematocrit 38.3 % (42.0-52.0); Mean Corpuscular HGB Conc 31.3 g/dl (32-36); Mean Corpuscular Hemoglobin 20.2 pg (26-34); Mean Corpuscular Volume 64.4 fl (80-100); Platelet Count Result 139 k/mm3 (150-375); Red Blood Count 5.95 M/mm3 (4.6-6.20); Red Cell Distribution Width 17.1 % (11.5-14.5); White Blood Count 9.4 K/mm3 (4.5-10.0)
[2023-07-09 06:21] LABS: Anion Gap 7 mmol/L (4-12); Blood Urea Nitrogen 19 mg/dL (9-20); Calcium 9.1 mg/dL (8.4-10.2); Carbon Dioxide 25 mmol/L (22-30); Chloride 104 mmol/L (98-107); Estimated Glomerular Filt Rate > 60; Glucose 94 mg/dL (65-110); Potassium 3.9 mmol/L (3.4-5.0); Sodium 136 mmol/L (137-145)
[2023-07-09 08:04] VITALS: PULSE 72
[2023-07-09] MEDS: SACUBITRIL/VALSARTAN 12-13 MG TABLET 1 TAB PO (08:43)
[2023-07-09] MEDS: EZETIMIBE 10 MG TABLET PO (08:43)
[2023-07-09] MEDS: PANTOPRAZOLE SODIUM IV 40 MG VIAL IV PUSH (08:43)
[2023-07-09] MEDS: ATORVASTATIN 40 MG TABLET PO (08:43)
[2023-07-09] MEDS: FLUTICASONE PROPIONATE 0.05% NA SPR 16 GM BTL (*BKC) 1 SPRAY NASAL (08:43)
[2023-07-09 08:44] VITALS: PULSE 71
[2023-07-09] MEDS: METOPROLOL TARTRATE 50 MG TAB PO (08:44)
[2023-07-09] MEDS: ASPIRIN 81 MG ENTERIC TABLET PO (08:44)
[2023-07-09] MEDS: CLOPIDOGREL BISULFATE 75 MG TABLET PO (08:44)
[2023-07-09 12:05] VITALS: PULSE 61
--- NOTE | 2023-07-09 12:19 | PM.DS ---
DS: Admitting Diagnosis Discharge Date 07/09/2023 Admitting Diagnosis Bowel obstruction. DS: Discharge Diagnosis Discharge Diagnosis (1) Esophagitis with gastritis: Code(s): K29.70 - Gastritis, unspecified, without bleeding; K20.90 - Esophagitis, unspecified without bleeding Status: Acute Assessment and Plan: SEE BELOW (2) Bowel obstruction: Qualifiers: Intestinal obstruction extent: partial Intestinal obstruction type: unspecified Qualified Code(s): K56.600 - Partial intestinal obstruction, unspecified as to cause Code(s): K56.609 - Unspecified intestinal obstruction, unspecified as to partial versus complete obstruction Status: Inactive Assessment and Plan: SEE BELOW (3) Thickening of wall of gallbladder: Code(s): K82.8 - Other specified diseases of gallbladder Status: Acute (4) Microcytic anemia: Code(s): D50.9 - Iron deficiency anemia, unspecified Status: Acute (5) Coronary artery disease: Code(s): I25.10 - Atherosclerotic heart disease of [place] coronary artery without angina pectoris Status: Acute (6) Hypertension: Code(s): I10 - Essential (primary) hypertension Status: Acute (7) Hyperlipidemia: Code(s): E78.5 - Hyperlipidemia, unspecified Status: Acute (8) Tobacco abuse: Code(s): Z72.0 - Tobacco use Status: Acute Plan The patient presented to the outside facility yesterday evening for evaluation of abdominal pain as detailed in HPI. Labs, imaging, EKG, and all reports were personally reviewed. CT scan showed findings of esophagitis/gastritis which would explain the epigastric discomfort, nausea, and vomiting. Gallbladder wall is thickened on CT and ultrasound which may indicate acalculous cholecystitis. There is also findings suspicious for partial obstruction or early complete Pt had bowel movement following Small bowel follow thru Can remove NG tube and start clear liquids today as per surgery team pt seen by surgery team ok to DC ater he eats low fiber meal. DS: Summary Hospital Course Hospital Course: 47-year-old male with coronary artery disease status post CABG, congestive heart failure, hypertension, and dyslipidemia who is being admitted to the medical floor from an outside facility for surgery consultation after he was found to have evidence of bowel obstruction on imaging. Pt had bowel movement after small bowel follow thru ok to remove NG tube and start clears as per surgery team. pt advanced to low fiber diet pt doing well ok to DC today. Pt ambulating well in the halls is ready to go. Time Spent with Patient Time attestation: Total time spent providing and/or coordinating discharge services:50 minutes of day of dc Exam Narrative: General: chronically ill middle aged male . Respiratory: Lung sounds are a bit diminished but are otherwise clear to auscultation. Cardiovascular: Regular rate and rhythm with S1-S2. Gastrointestinal: Abdomen is soft and perhaps mildly distended with positive bowel sounds. He is tender to palpation in the epigastric and periumbilical region. No guarding or rebound tenderness. Skin: Warm and dry. Extremities: No cyanosis, clubbing, or edema. Radial and pedal pulses intact. Neurological: Alert. Cranial nerves 2-12 are grossly intact. No gross focal deficits to casual conversation. Psychiatric: Appropriate mood and affect. DS: Data Data Completed and Pending Labs on day of discharge: Labs from last 24 hours 07/09/23 05:35 WBC 9.4 RBC 5.95 Hgb 12.0 L Hct 38.3 L MCV 64.4 L MCH 20.2 L MCHC 31.3 L RDW 17.1 H Plt Count 139 L MPV TNP % Immature Plt Fraction 12.0 H Sodium 136 L Potassium 3.9 Chloride 104 Carbon Dioxide 25 Anion Gap 7 BUN 19 Creatinine 0.90 Estim Creat Clear Calc Not Reportable Estimated GFR > 60 Glucose 94 Calcium 9.1 Discharge Plan Discharge Attending physician on disc
== END 2023-07-09 14:30 | disposition home or self-care (01) | DRG 394 ==
PROVIDERS: Physician Assistant; Surgery; Admitting Provider Internal Medicine; PCP Internal Medicine; Visit Provider Family Medicine
DX: K46.0 Unspecified abdominal hernia with obstruction, without gangrene (principal); K56.0 Paralytic ileus; I25.10 Atherosclerotic heart disease of native coronary artery without angina pectoris; K20.90 Esophagitis, unspecified without bleeding; K29.70 Gastritis, unspecified, without bleeding; K82.8 Other specified diseases of gallbladder; I73.9 Peripheral vascular disease, unspecified; D50.9 Iron deficiency anemia, unspecified; I11.0 Hypertensive heart disease with heart failure; I50.9 Heart failure, unspecified; E78.5 Hyperlipidemia, unspecified; F17.210 Nicotine dependence, cigarettes, uncomplicated; Z95.1 Presence of aortocoronary bypass graft; Z90.49 Acquired absence of other specified parts of digestive tract; Z79.02 Long term (current) use of antithrombotics/antiplatelets; Z79.82 Long term (current) use of aspirin
CPT/HCPCS: 36415; 74250; 80048; 82274; 82607; 82728; 82746; 83540; 83550; 83735; 84443; 85025; 85027; 85055; A9270; C9113; J2270; J7120

== ENCOUNTER 2023-07-26 08:58 | Emergency (ER) | payer MEDICARE, SELFPAY ==
[2023-07-26] VITALS (60 sets, daily range): BP systolic 117–179; BP diastolic 61–99; PULSE 62–78; RESP 20; TEMP 36.4–36.8; O2SAT 96–100
--- NOTE | ~2023-07-26 | CT_ITS ---
EXAMINATION: CT abdomen pelvis w con DATE: 07/26/2023 16:07 INDICATION: Abdominal pain. Nausea and vomiting. Partial small bowel obstruction. TECHNIQUE: Computed tomography (CT) of the abdomen and pelvis was performed with 100 mL Omnipaque 350 intravenous contrast. Automated exposure control and iterative reconstruction technique were employe d. The dose-length product was 474.85 mGy-cm. COMPARISON: CT abdomen and pelvis 07/06/23 FINDINGS: The visualized portions of the lung bases demonstrate mild atelectasis. No pleural effusion . The heart size is normal. There are coronary artery calcifications. No pericardial effusion. The li thi and spleen are normal. The gallbladder is normal in size. Gallbladder wall thickening is noted. T he pancreas and adrenal glands are normal. There are cysts in the kidneys measuring up to 17 mm on th e left. There is a 3 mm stone in left kidney. There is diverticulosis of the colon without evidence o f diverticulitis. There are changes of appendectomy. There are no dilated loops of bowel. There is ca lcified atherosclerosis of the aorta and many of the other arteries. There are no pathologically enla rged lymph nodes. There is no free intraperitoneal fluid. There are bilateral inguinal hernias contai madie fat. There is severe lower lumbar spondylosis. There is mild chronic anterior wedging of T12 and L1 vertebral bodies. IMPRESSION: 1. Gallbladder wall thickening, which may be seen with chronic cholecystitis, chronic liver disease, or interstitial edema. Reviewed, dictated and finalized at location E. IMPRESSION: 1. Gallbladder wall thickening, which may be seen with chronic cholecystitis, c hronic liver disease, or interstitial edema.
--- NOTE | ~2023-07-26 | XR_ITS ---
XR abdomen obstructive series 07/26/2023 09:37 Indication: Abdomen pain with nausea and vomiting Procedure: Supine and upright views of abdomen Comparison: 07/08/2023 Findings: Mildly dilated small bowel left mid abdomen with air-fluid level. Moderate colonic fecal lo ading. There are surgical changes of the abdomen in the right midabdomen. Impression: 1: Mildly dilated proximal small bowel left midabdomen, suspicious for partial obstruction versus ile us. Reviewed, dictated and finalized at location A. Impression: 1: Mildly dilated proximal small bowel left midabdomen, suspicious for partial obstruction versus ileus.
--- NOTE | 2023-07-26 09:13 | ED.GENADULT ---
HPI - General Adult General Chief complaint: Abdominal Pain Stated complaint: abdominal pain Time Seen by Provider: 07/26/23 09:01 History of Present Illness HPI narrative: The patient is a 47-year-old male with recent history of partial small-bowel obstruction diagnosed 07/07/2019 for transfer to [facility] where he had a small-bowel follow-through proceeded by insertion of a nasogastric tube for gastric decompression the small bowel rest. His gallbladder was taken at the time on CT imaging. He was noted to have microcytic anemia and iron deficiency anemia. There was evidence of esophagitis and gastritis, both mild, on the CT imaging that was done at that time. Outpatient follow-up with GI after GI consultation was done. He has an appointment at the end of August 2023, next month, for upper and lower endoscopy. Other comorbidities include coronary artery disease status post myocardial infarction, status post coronary artery bypass grafting x3, prior laparoscopic appendectomy back surgery and right ear surgery. He does have heart failure and is on Entresto therapy. History of peripheral vascular disease, kidney stones, hypertension, hyperlipidemia. He still smokes cigarettes. He is on aspirin and clopidogrel. Since 7:00 a.m. this morning, the patient has had diffuse generalized abdominal pain, constant in nature, not radiating elsewhere, moderate to severe in intensity, associated with 1 bout of emesis. He still feels nauseated. He did have a normal bowel movement today and a normal 1 yesterday. No urinary symptoms such as urgency frequency dysuria or hematuria. No hematochezia or melena. No URI symptoms such as cough rhinorrhea or nasal congestion. No fevers or chills or diaphoresis. Related Data Home Medications Medication Instructions Recorded Confirmed clopidogrel 75 mg tablet 75 mg PO DAILY 01/22/20 07/07/23 metoprolol tartrate 50 mg tablet 50 mg PO BID 01/22/20 07/07/23 aspirin 81 mg tablet,delayed 81 mg PO DAILY 01/23/20 07/07/23 release (Piper Low Dose Aspirin) fluticasone propionate 50 1 spray intranasal DAILY 09/30/21 07/07/23 mcg/actuation nasal spray,suspension (Flonase Allergy Relief) sacubitril 24 mg-valsartan 26 mg 0.5 tablet PO BID 02/19/23 07/07/23 tablet (Entresto) atorvastatin 40 mg PO DAILY 07/07/23 07/07/23 ezetimibe 10 mg tablet 10 mg PO DAILY 07/07/23 07/07/23 Allergies Allergy/AdvReac Type Severity Reaction Status Date / Time No Known Allergies Allergy Verified 03/05/23 13:11 Review of Systems Review of Systems: All systems reviewed & are unremarkable except as noted in HPI and below Constitutional: Constitutional: Denies chills, Denies excessive sweating, Denies fatigue, Denies fever(s), Denies headache(s) and Denies weakness Eyes: Eyes: Denies change in vision and Denies photophobia ENT: Denies dysphagia, Denies dizziness, Denies headache(s), Denies lip swelling, Denies nasal congestion, Denies sore throat and Denies tongue swelling Cardiovascular: Cardiovascular: Denies chest pain, Denies syncope, Denies rapid heart rate and Denies dyspnea Respiratory: Respiratory: Denies cough, Denies dyspnea and Denies wheezing Gastrointestinal: Gastrointestinal: Reports abdominal pain, Denies constipation, Denies dysphagia, Denies diarrhea, Reports nausea and Reports vomiting Genitourinary: Genitourinary: Denies hematuria, Denies dysuria, Denies urinary frequency and Denies urinary urgency Musculoskeletal: Musculoskeletal: Denies back pain, Denies myalgias, Denies arthralgias, Denies joint swelling and Denies numbness Integumentary/Breasts: Skin/Breast: Denies pruritus, Denies erythema and Denies rash Neurologic: Denies confusion, Denies dizziness, Denies syncope, Denies headache(s), Denies focal weakness, Denies numbness and Denies weakness Psychiatric: Psychiatric: Denies anxiety and Denies confusion Endocrine: Endocrine: Denies excessive sweating and Denies fatigue Hematologi
[2023-07-26] MEDS: METOCLOPRAMIDE HCL INJ 10 MG/2 ML VIAL IV PUSH (09:35)
[2023-07-26] MEDS: KETOROLAC 30 MG/ML VIAL (*BKC) IV PUSH (09:35)
[2023-07-26] MEDS: PANTOPRAZOLE SODIUM IV 40 MG VIAL IV PUSH (09:35)
[2023-07-26] MEDS: ONDANSETRON INJ 4 MG/2 ML VIAL IV PUSH (09:36)
[2023-07-26] MEDS: SODIUM CHLORIDE 0.9% IV 1,000 ML 999 ML IV CONT ×2 (09:36→09:37)
[2023-07-26 09:49] LABS: Basophils Absolute Auto 0.12 K/mm3 (0.00-0.10); Basophils Percent Auto 0.8 % (0.0-1.0); Eosinophils Absolute Auto 0.47 K/mm3 (0.02-0.50); Eosinophils Percent Auto 3.2 % (1.0-6.0); Hematocrit 44.9 % (40.0-54.0); Hemoglobin 13.8 g/dL (14.0-18.0); Immature Granulocyte Absolute 0.19 K/mm3 (0.00-0.00); Immature Granulocyte Percent A 1.3 % (0.0-0.0); Immature Platelet Fraction Pct 10.1 % (1.0-7.0); Lymphocytes Absolute Auto 2.59 K/mm3 (1.10-4.50); Lymphocytes Percent Auto 17.4 % (18.0-42.0); Mean Corpuscular HGB Conc 30.7 g/dL (32-36); Mean Corpuscular Hemoglobin 20.1 pg (27.0-31.0); Mean Corpuscular Volume 65.5 fL (78.0-102.0); Monocytes Absolute Auto 0.87 K/mm3 (0.10-0.90); Monocytes Percent Auto 5.8 % (2.0-11.0); Neutrophils Absolute Auto 10.65 K/mm3 (1.70-7.20); Neutrophils Percent Auto 71.5 % (50.0-70.0); Platelet Count Result 191 K/mm3 (150-420); Red Blood Count 6.86 M/mm3 (4.70-6.10); Red Cell Distribution Width 18.1 % (11.6-14.4); White Blood Count 14.9 K/mm3 (4.8-10.8)
[2023-07-26 09:55] LABS: Appearance Urine Clear (Clear); Bilirubin Urine Negative (Negative); Blood Urine Negative (Negative); Color Urine Yellow (Yellow); Glucose Urine UA Negative (Negative); Ketones Urine Negative (Negative); Leukocyte Esterase Ur Negative LEU/UL (Negative); Nitrate Urine Negative (Negative); Protein Urine Negative (Negative); Specific Grav Ur >= 1.030 (1.010-1.020); Urobilinogen Urine 0.2 mg/dL (0.2-1.0)
[2023-07-26 09:56] LABS: Add Urine Microscopic? NO
[2023-07-26 10:02] LABS: Alanine Aminotransferase 32 U/L (16-63); Albumin Level 4.2 g/dL (3.4-5.0); Alkaline Phosphatase 98 U/L (46-116); Amylase 47 U/L (25-115); Anion Gap 8 mmol/L (4-12); Aspartate Amino Transferase 15 U/L (15-37); Bilirubin,Total 0.5 mg/dL (0.00-1.00); Blood Urea Nitrogen 8 mg/dL (7-18); Carbon Dioxide 30 mmol/L (21-32); Chloride 105 mmol/L (98-108); Estimated CRCL calculation 84 ml/min; Estimated Glomerular Filt Rate > 60; Glucose 112 mg/dL (70-99); Lipase 17 U/L (16-77); Magnesium 1.9 mg/dL (1.8-2.4); Osmolality Calculated 295 mOsm/kg (285-295); Potassium 4.8 mmol/L (3.5-5.1); Sodium 143 mmol/L (136-145); Total Protein 7.8 g/dL (6.4-8.2)
[2023-07-26 10:04] LABS: Lactic Acid Reflex 2.6 mmol/L (0.4-2.0)
[2023-07-26 10:08] LABS: Ethanol < 3 mg/dL (0-6)
[2023-07-26] MEDS: MORPHINE SULFATE (*CRX) 4 MG/ML INJ IV PUSH (11:12)
[2023-07-26] MEDS: SODIUM CHLORIDE 0.9% IV 1,000 ML 125 ML IV CONT (11:12)
[2023-07-26 11:37] LABS: Reflex Lactic Acid Yes or No No Lactic Reflex
--- NOTE | 2023-07-26 11:39 | PC.NURSE ---
pt resting eyes closed , no complaint of pain at this time
[2023-07-26 11:52] LABS: Lactic Acid Reflex 1.4 mmol/L (0.4-2.0)
[2023-07-26 11:58] LABS: CRP < 0.5 mg/dL (0.0-0.9)
[2023-07-26 12:52] LABS: Erythrocyte Sedimentation Rate 2 mm/hr (0-15)
--- NOTE | 2023-07-26 15:58 | PC.NURSE ---
pt to xray for ct scan
--- NOTE | 2023-07-26 16:11 | PC.NURSE ---
pt returned to room, speaking to mother on the phone
[2023-07-29 12:13] LABS: CRP < 0.5 mg/dL (0.0-0.9)
[2023-08-02 13:33] LABS: S cerevisiae Ab (IgA) 5.5 U (<=20.0); S cerevisiae Ab (IgG) 8.6 U (<=20.0)
[2023-08-03 09:03] LABS: Myeloperoxidase Ab <1.0 AI (<1.0); Proteinase-3 Ab <1.0 AI (<1.0)
[2023-08-03 17:02] LABS: ANCA Screen Negative (Negative)
== END 2023-07-26 18:31 | disposition home or self-care (01) ==
PROVIDERS: Emergency Provider Emergency Medicine; PCP Internal Medicine
DX: K81.1 Chronic cholecystitis (principal); R11.2 Nausea with vomiting, unspecified; I25.10 Atherosclerotic heart disease of native coronary artery without angina pectoris; I10 Essential (primary) hypertension; E78.5 Hyperlipidemia, unspecified; D64.9 Anemia, unspecified; I49.3 Ventricular premature depolarization; Z95.1 Presence of aortocoronary bypass graft; F17.210 Nicotine dependence, cigarettes, uncomplicated; Z79.02 Long term (current) use of antithrombotics/antiplatelets; Z79.82 Long term (current) use of aspirin; Z79.899 Other long term (current) drug therapy
CPT/HCPCS: 36415; 74019; 74177; 80053; 80307; 81003; 82150; 83605; 83690; 83735; 85025; 85055; 85652; 86036; 86140; 86671; 96361; 96374; 96375; 99284; C9113; J1885; J2270; J2405; J2765; J7030; Q9967

== ENCOUNTER 2023-08-11 00:29 | Day surgery (SDC) | payer MEDICARE, SELFPAY ==
[2023-07-30 10:06] VITALS: BMI 25.0
--- NOTE | 2023-08-06 14:17 | PC.NURSE ---
Spoke with _MOTHER LULY_ regarding medication _PLAVIX_. Pt. verbalizes understanding that the last dose of PLAVIX is to be taken on 08/06/2023 and the Endoscopist will instruct them when to restart after the procedure.
[2023-08-11 09:57] VITALS: BP 131/95; PULSE 66; RESP 18; TEMP 36.2; O2SAT 100
[2023-08-11] MEDS: LACTATED RINGERS 1,000 ML 150 ML IV CONT (10:22)
--- NOTE | 2023-08-11 10:22 | WPDANESEPPF ---
Anes - Initial Pre Proc Eval Procedure: Operation Date: 08/11/23 13:00 Proposed Procedures p Esophagogastroduodenoscopy & Colonoscopy - Hu Saravia MD Date/Time: 08/11/23 10:22 Surgeon: Hu Saravia MD Pre Op Diagnosis: gastritis unspecified without bleeding, Esophagiti Patient Data Age: 47 Gender: M Height: 1.8 m Weight: 84.7 kg Last Vital Signs Temp 97.2 F L 08/11/23 09:57 Pulse 66 08/11/23 09:57 Resp 18 08/11/23 09:57 BP 131/95 H 08/11/23 09:57 Pulse Ox 100 08/11/23 09:57 O2 Del Method Room Air 08/11/23 09:57 Allergies Allergy/AdvReac Type Severity Reaction Status Date / Time No Known Allergies Allergy Verified 08/11/23 09:53 Home Medications Medication Instructions Recorded Confirmed Type clopidogrel 75 mg tablet 75 mg PO DAILY 01/22/20 07/30/23 History metoprolol tartrate 50 mg tablet 25 mg PO BID 01/22/20 07/30/23 History aspirin 81 mg tablet,delayed 81 mg PO DAILY 01/23/20 07/30/23 History release (Piper Low Dose Aspirin) fluticasone propionate 50 1 spray intranasal DAILY 09/30/21 07/30/23 History mcg/actuation nasal spray,suspension (Flonase Allergy Relief) sacubitril 24 mg-valsartan 26 mg 0.5 tablet PO BID 02/19/23 07/30/23 History tablet (Entresto) atorvastatin 40 mg PO DAILY 07/07/23 07/30/23 History ezetimibe 10 mg tablet 10 mg PO DAILY 07/07/23 07/30/23 History hydrocodone 5 mg-acetaminophen 325 1 tablet PO Q12H PRN pain, severe 07/26/23 07/30/23 Rx mg tablet #14 tabs ondansetron 8 mg disintegrating 8 mg PO Q8H PRN nausea and 07/26/23 07/30/23 Rx tablet vomiting #20 tabs Patient hx anesthesia problems: none Family hx anesthesia problems: none Results Review: All pre-operative results and documents have been reviewed as part of the pre-operative evaluation. COUNTS INCLUDE 234 BEDS AT THE [facility] Past Medical History Medical History Coronary artery disease Hyperlipidemia Hypertension Kidney stones Microcytic anemia Nicotine addiction Peripheral vascular disease, unspecified Tobacco abuse Surgical History Surgical History History of back surgery (2012) Disc replacement. History of coronary artery bypass graft (11/2018) History of ear surgery History of laparoscopic appendectomy (01/2020) Family History Family History Father Acute myocardial infarction Asthma Hypertension Heart disease Mother Diabetes mellitus Asthma Hypertension Depression Heart disease Sibling Asthma Diabetes mellitus Hypertension Depression Heart disease Grandparent Diabetes mellitus Hypertension Depression Heart disease Thyroid disease Grandparent Diabetes mellitus Hypertension Heart disease Social History Social History Social History: Surrogate medical decision maker: Emily Hi, mother. Code status: Full code. Smoking packs per day: 1.5 Smoking cigarettes per day: 30.0 Years smoked: 20 Smoking pack-years: 30.00 Smoking status: Current every day smoker Tobacco type: cigarettes Alcohol intake: current Alcohol use details: Socially Substance use: never Substance use type: does not use Do You Feel Safe in your Home?: Yes Lack of Transportation: No Lack of Food: Never True Current Housing: I Have Housing Concerned About Future Housing: No Difficulty Paying Gas/Electric Bills: No Difficulty Paying for Meds: No Currently Unemployed: No Education: High School Diploma/GED Difficulty w/ Childcare or Family Care: No Living arrangements: with family Spiritual care concerns: No Anes - Eval Final PreProcedure Day of Procedure 08/11/23 10:22 Patient weight: normal Heart: regular rate and rhythm Lungs: clear to auscultation Airway: Mallampati scale class II
--- NOTE | 2023-08-11 10:38 | PM.HPGS ---
History of Present Illness History of Present Illness Consent: Risks, benefits, and alternatives have been discussed and questions answered. Patient agrees to proceed with procedure. Chief complaint: gastritis unspecified without bleeding, Esophagiti Narrative: Ras Hi is a 47 year old male here for egd and colonoscopy, here with new intermittent n/v with abdominal pain, CT scan showed possible mesenteric hernia with possible partial SBO and recent hospitalization, SBFT possible ileus, no more nausea. Also noted microcytic anemia, never had scopes. Also h/o sarcoidosis. Review of Systems Review of Systems: All systems reviewed & are unremarkable except as noted in HPI and below PMFSH Past Medical History Medical History Coronary artery disease Hyperlipidemia Hypertension Kidney stones Microcytic anemia Nicotine addiction Peripheral vascular disease, unspecified Tobacco abuse Surgical History Surgical History History of back surgery (2012) Disc replacement. History of coronary artery bypass graft (11/2018) History of ear surgery History of laparoscopic appendectomy (01/2020) Family History Family History Father Acute myocardial infarction Asthma Hypertension Heart disease Mother Diabetes mellitus Asthma Hypertension Depression Heart disease Sibling Asthma Diabetes mellitus Hypertension Depression Heart disease Grandparent Diabetes mellitus Hypertension Depression Heart disease Thyroid disease Grandparent Diabetes mellitus Hypertension Heart disease Social History Social History Social History: Surrogate medical decision maker: Emily Hi, mother. Code status: Full code. Smoking packs per day: 1.5 Smoking cigarettes per day: 30.0 Years smoked: 20 Smoking pack-years: 30.00 Smoking status: Current every day smoker Tobacco type: cigarettes Alcohol intake: current Alcohol use details: Socially Substance use: never Substance use type: does not use Do You Feel Safe in your Home?: Yes Lack of Transportation: No Lack of Food: Never True Current Housing: I Have Housing Concerned About Future Housing: No Difficulty Paying Gas/Electric Bills: No Difficulty Paying for Meds: No Currently Unemployed: No Education: High School Diploma/GED Difficulty w/ Childcare or Family Care: No Living arrangements: with family Spiritual care concerns: No Meds Home Medications and Allergies Home Medications Medication Instructions Recorded Confirmed Type clopidogrel 75 mg tablet 75 mg PO DAILY 01/22/20 07/30/23 History metoprolol tartrate 50 mg tablet 25 mg PO BID 01/22/20 07/30/23 History aspirin 81 mg tablet,delayed 81 mg PO DAILY 01/23/20 07/30/23 History release (Piper Low Dose Aspirin) fluticasone propionate 50 1 spray intranasal DAILY 09/30/21 07/30/23 History mcg/actuation nasal spray,suspension (Flonase Allergy Relief) sacubitril 24 mg-valsartan 26 mg 0.5 tablet PO BID 02/19/23 07/30/23 History tablet (Entresto) atorvastatin 40 mg PO DAILY 07/07/23 07/30/23 History ezetimibe 10 mg tablet 10 mg PO DAILY 07/07/23 07/30/23 History hydrocodone 5 mg-acetaminophen 325 1 tablet PO Q12H PRN pain, severe 07/26/23 07/30/23 Rx mg tablet #14 tabs ondansetron 8 mg disintegrating 8 mg PO Q8H PRN nausea and 07/26/23 07/30/23 Rx tablet vomiting #20 tabs Allergies Allergy/AdvReac Type Severity Reaction Status Date / Time No Known Allergies Allergy Verified 08/11/23 09:53 Vital Signs Vital Signs - 24 hr 08/11/23 09:57 Temperature 97.2 F L Pulse Rate 66 Respiratory Rate 18 Blood Pressure 131/95 H Pulse Oximetry 100 Oxygen Delivery Room Air Exam Const: General: comfortable and no acute dist
--- NOTE | 2023-08-11 11:09 | SUR.OPER ---
EGD ended at 1102, colon began at 1109
[2023-08-11 11:24] VITALS: BP 102/67; PULSE 67; RESP 30; O2SAT 95
[2023-08-11 11:34] VITALS: BP 98/69; PULSE 72; RESP 22; O2SAT 92
[2023-08-11 11:44] VITALS: BP 97/66; PULSE 65; RESP 30; O2SAT 97
== END 2023-08-11 12:09 | disposition home or self-care (01) ==
PROVIDERS: PCP Internal Medicine; Visit Provider Internal Medicine Gastroenterology
PROC: 0DJ08ZZ Inspection of Upper Intestinal Tract, Via Natural or Artificial Opening Endoscopic (ICD-10-PCS; CPT 43235; principal; 2023-08-11 13:00)
DX: D50.9 Iron deficiency anemia, unspecified (principal); K21.00 Gastro-esophageal reflux disease with esophagitis, without bleeding; K29.50 Unspecified chronic gastritis without bleeding; K57.30 Diverticulosis of large intestine without perforation or abscess without bleeding; K64.0 First degree hemorrhoids; I10 Essential (primary) hypertension; I25.10 Atherosclerotic heart disease of native coronary artery without angina pectoris; E78.5 Hyperlipidemia, unspecified; I73.9 Peripheral vascular disease, unspecified; Z95.1 Presence of aortocoronary bypass graft; F17.210 Nicotine dependence, cigarettes, uncomplicated; Z79.02 Long term (current) use of antithrombotics/antiplatelets; Z79.82 Long term (current) use of aspirin; Z79.891 Long term (current) use of opiate analgesic
CPT/HCPCS: 45378; 43239; 88305; 88342; J0461; J2704; J3010; J7120

== ENCOUNTER 2024-02-13 12:16 | Emergency (ER) | payer MEDICARE, SELFPAY ==
--- NOTE | ~2024-02-13 | XR_ITS ---
EXAMINATION: XR finger 1st LT min 2V DATE: 02/13/2024 12:39 INDICATION: Left hand first digit laceration. TECHNIQUE: 3 views of left hand first digit were obtained. COMPARISON: None. FINDINGS: Alignment is normal. No fracture. There is mild osteoarthritis of first interphalangeal werner nt and first carpometacarpal joint. There is a punctate calcification at the skin. IMPRESSION: 1. No fracture. Reviewed, dictated and finalized at location A. M FLATTENER IMPRESSION: 1. No fracture.
[2024-02-13 12:20] VITALS: BP 139/81; PULSE 62; RESP 18; TEMP 36.6; O2SAT 98
--- NOTE | 2024-02-13 13:07 | ED.WOUNDLAC ---
HPI - Wound/Laceration General Chief Complaint: Wound/Laceration Stated Complaint: thumb injury Time Seen by Provider: 02/13/24 12:27 Source: patient and family Mode of arrival: ambulatory Limitations: no limitations History of Present Illness HPI narrative: this is a 48-year-old male with some one-day history of avulsion injury to the left thumb with swelling secondary to a drill injury that occurred yesterday patient is up-to-date with his tetanus currently no drainage no fever chills. Onset (ago): day(s) Extremity Location: Left: hand ( Some swelling an avulsion injury) Place: home Patient tetanus UTD: Yes Context: accidental Related Data Home Medications Medication Instructions Recorded Confirmed clopidogrel 75 mg tablet 75 mg PO DAILY 01/22/20 02/13/24 metoprolol tartrate 50 mg tablet 25 mg PO BID 01/22/20 02/13/24 aspirin 81 mg tablet,delayed 81 mg PO DAILY 01/23/20 02/13/24 release (Piper Low Dose Aspirin) fluticasone propionate 50 1 spray intranasal DAILY 09/30/21 02/13/24 mcg/actuation nasal spray,suspension (Flonase Allergy Relief) sacubitril 24 mg-valsartan 26 mg 0.5 tablet PO BID 02/19/23 02/13/24 tablet (Entresto) atorvastatin 40 mg PO DAILY 07/07/23 02/13/24 ezetimibe 10 mg tablet 10 mg PO DAILY 07/07/23 02/13/24 Allergies Allergy/AdvReac Type Severity Reaction Status Date / Time No Known Allergies Allergy Verified 02/13/24 12:17 Review of Systems Review of Systems: All systems reviewed & are unremarkable except as noted in HPI and below PMFSH Past Medical History Medical History Coronary artery disease Helicobacter pylori (H. pylori) infection Hyperlipidemia Hypertension Kidney stones Microcytic anemia Nicotine addiction Peripheral vascular disease, unspecified Tobacco abuse Surgical History Surgical History History of back surgery (2012) Disc replacement. History of coronary artery bypass graft (11/2018) History of ear surgery History of laparoscopic appendectomy (01/2020) Family History Family History Father Acute myocardial infarction Asthma Hypertension Heart disease Mother Diabetes mellitus Asthma Hypertension Depression Heart disease Sibling Asthma Diabetes mellitus Hypertension Depression Heart disease Grandparent Diabetes mellitus Hypertension Depression Heart disease Thyroid disease Grandparent Diabetes mellitus Hypertension Heart disease Social History Social History Social History: Surrogate medical decision maker: Emily Hi, mother. Code status: Full code. Smoking packs per day: 1.5 Smoking cigarettes per day: 30.0 Years smoked: 20 Smoking pack-years: 30.00 Smoking status: Current every day smoker Tobacco type: cigarettes Alcohol intake: current Alcohol use details: Socially Substance use: never Substance use type: does not use Do You Feel Safe in your Home?: Yes Lack of Transportation: No Lack of Food: Never True Current Housing: I Have Housing Concerned About Future Housing: No Difficulty Paying Gas/Electric Bills: No Difficulty Paying for Meds: No Currently Unemployed: No Education: High School Diploma/GED Difficulty w/ Childcare or Family Care: No Living arrangements: with family Spiritual care concerns: No Exam Const: General: healthy appearing Nutritional Appearance: well nourished Orientation/consciousness: patient oriented x3 Limitations: no limitations Chest: Chest palpation & inspection: normal inspection of the chest Resp: Effort & Inspection: normal respiratory effort Auscultation: clear to auscultation bilaterally Cardio: Rate: regular rate Rhythm: regular rhythm Skin: Wounds: wounds noted Other: Avulsion injury anterior left distal thumb Extrem: General: normal to inspection and edema Course Course Emergency Course: patient's tetanus is up-to-date patient had x-ray performed which shows no acute fractures triple antibiotic ointment was placed and a plea p.o. dose of Augmentin administered Vital Signs Vital signs: Vital Signs Temperature 36.6 C 02/13/24 12:20 Pulse Rate 62 02/13/24 12:20 Respiratory Rate 18 02/13/24 12:20 Blood Pressure 139/81 02/13/24 12:20 Pulse Oximetry 98 02/13/24 12:20 Oxygen Delivery Room Air 02/13/24 12:20 Temperature 36.6 C 02/13/24 12:20 Pulse Rate 62 02/13/24 12:20 Respiratory Rate 18 02/13/24 12:20 Blood Pressure 139/81 02/13/24 12:20 Pulse Oximetry 98 02/13/24 12:20 Oxygen Delivery Room Air 02/13/24 12:20 Critical Care Time Critical Care Time Critical Care Time: No Discharge Plan Discharge Clinical Impression: Avulsion of skin of finger Qualifiers: Encounter type: initial encounter Qualified Code(s): S61.209A - Unspecified open wound of unspecified finger without damage to nail, initial encounter Patient Disposition: Home, Self-Care Condition: Stable Instructions: Antibiotic Form, Skin Avulsion (ED) Additional Instructions: advised patient to take medication as prescribed, can take Tylenol or Motrin for swelling and inflammation and follow with primary within a week further evaluation and treatment. Prescriptions: New amoxicillin-pot clavulanate [Augmentin] 500-125 mg tablet 1 tablet PO TID Qty: 30 0RF No Action clopidogrel 75 mg tablet 75 mg PO DAILY metoprolol tartrate 50 mg tablet 25 mg PO BID hydrocodone-acetaminophen 5-325 mg tablet 1 tablet PO Q12H PRN (Reason: pain, severe) Qty: 14 0RF ondansetron 8 mg tablet,disintegrating 8 mg PO Q8H PRN (Reason: nausea and vomiting) Qty: 20 0RF fluticasone propionate [Flonase Allergy Relief] 50 mcg/actuation spray,suspension 1 spray intranasal DAILY Rx Instructions: administer into each nostril Entresto 24-26 mg tablet 0.5 tablet PO BID aspirin [Piper Low Dose Aspirin] 81 mg Tablet,Delayed Release (Dr/Ec) 81 mg PO DAILY ezetimibe 10 mg Tablet 10 mg PO DAILY atorvastatin tablet 40 mg PO DAILY pantoprazole 40 mg tablet,delayed release (DR/EC) 40 mg PO .daily Qty: 30 11RF Follow-up/Referrals: Misael Camargo MD [Primary Care Provider] - Time of Disposition: 13:11
[2024-02-13] MEDS: AMOXICILLIN/CLAVULANATE K 875-125 MG TAB 1 TABLET PO (13:23)
[2024-02-13 13:24] VITALS: BP 139/81; PULSE 62; RESP 18; TEMP 36.6; O2SAT 98
== END 2024-02-13 13:24 | disposition home or self-care (01) ==
PROVIDERS: Emergency Provider Emergency Medicine; PCP Internal Medicine
DX: S61.209A Unspecified open wound of unspecified finger without damage to nail, initial encounter (principal); I10 Essential (primary) hypertension; I25.10 Atherosclerotic heart disease of native coronary artery without angina pectoris; F17.210 Nicotine dependence, cigarettes, uncomplicated; Z79.899 Other long term (current) drug therapy; Z79.82 Long term (current) use of aspirin; W29.8XXA Contact with other powered hand tools and household machinery, initial encounter
CPT/HCPCS: 73140; 99283; A9270

== ENCOUNTER 2024-02-23 01:34 | Emergency (ER) | payer MEDICARE, SELFPAY ==
--- NOTE | ~2024-02-23 | CT_ITS ---
CT of the Abdomen and Pelvis: Indication: Left lower quadrant pain Technique: 2.5 mm axial scans were obtained through the abdomen and pelvis following intravenous adm inistration of 100 cc of Omnipaque 350. Dose reduction technique was used on this scan by utilizing a utomated exposure control and iterative reconstruction technique. The dose-length product (DLP) was 6 67.63 mGy-cm. COMPARISON: 07/26/2023 Findings: Scans through the lung bases are unremarkable. The liver, spleen, pancreas, gallbladder, adrenals and right kidney are within normal limits. There i s a 3 mm distal left ureteral stone (axial image 144), with minimal left hydroureteronephrosis, and m ild left perinephric stranding. There are atherosclerotic calcifications of the aorta. No lymphadeno zully. No bowel obstruction or bowel wall thickening. There is no evidence to suggest acute appendicitis. Images through the pelvis were performed. Urinary bladder unremarkable. No pelvic mass seen. No ascit es. Impression: 3 mm distal left ureteral stone with minimal left hydroureteronephrosis and mild left perinephric str anding. Reviewed, dictated and finalized at location M. UTIVE RECEPTIONIST Impression: 3 mm distal left ureteral stone with minimal left hydroureteronephrosis and mil d left perinephric stranding.
[2024-02-23 01:37] VITALS: BP 144/86; PULSE 74; RESP 18; TEMP 36.1; O2SAT 100
--- NOTE | 2024-02-23 01:43 | ED.ABDPAIN ---
HPI - Abdominal Pain General Chief Complaint: Abdominal Pain Stated Complaint: abdominal pain Time Seen by Provider: 02/23/24 01:42 History of Present Illness HPI narrative: 48 YEARS OLD WHITE MALE CAME TO THE HOSPITAL BY PRIVATE CAR COMPLAINING OF LEFT LOWER QUADRANT PAIN STARTED WHILE LYING DOWN IN BED 3 HOURS PRIOR TO ARRIVAL TO THE ED. PATIENT DENIES ANY FEVER, CHILLS, NAUSEA, VOMITING. PATIENT REPORTS PAIN SOMETIME GO TO HIS LEFT TESTICLE. HISTORY OF SMALL-BOWEL OBSTRUCTION, CHOLECYSTECTOMY, ANEMIA, ESOPHAGITIS, GASTRITIS, CORONARY ARTERY DISEASE, STATUS POST MYOCARDIAL INFARCTION, STATUS POST CORONARY ARTERY BYPASS GRAFTING X3, LAPAROSCOPIC APPENDECTOMY, BACK SURGERY AND RIGHT EAR SURGERY CONGESTIVE HEART FAILURE HISTORY OF PERIPHERAL VASCULAR DISEASE, KIDNEY STONE, HYPERTENSION, HYPERLIPIDEMIA HE STILL SMOKES CIGARETTES HE IS ON ASPIRIN AND PLAVIX Related Data Home Medications Medication Instructions Recorded Confirmed clopidogrel 75 mg tablet 75 mg PO DAILY 01/22/20 02/13/24 metoprolol tartrate 50 mg tablet 25 mg PO BID 01/22/20 02/13/24 aspirin 81 mg tablet,delayed 81 mg PO DAILY 01/23/20 02/13/24 release (Piper Low Dose Aspirin) fluticasone propionate 50 1 spray intranasal DAILY 09/30/21 02/13/24 mcg/actuation nasal spray,suspension (Flonase Allergy Relief) sacubitril 24 mg-valsartan 26 mg 0.5 tablet PO BID 02/19/23 02/13/24 tablet (Entresto) atorvastatin 40 mg PO DAILY 07/07/23 02/13/24 ezetimibe 10 mg tablet 10 mg PO DAILY 07/07/23 02/13/24 Allergies Allergy/AdvReac Type Severity Reaction Status Date / Time No Known Allergies Allergy Verified 02/23/24 01:53 Review of Systems Review of Systems: All systems reviewed & are unremarkable except as noted in HPI and below PMFSH Past Medical History Medical History Coronary artery disease Helicobacter pylori (H. pylori) infection Hyperlipidemia Hypertension Kidney stones Microcytic anemia Nicotine addiction Peripheral vascular disease, unspecified Tobacco abuse Surgical History Surgical History History of back surgery (2012) Disc replacement. History of coronary artery bypass graft (11/2018) History of ear surgery History of laparoscopic appendectomy (01/2020) Family History Family History Father Acute myocardial infarction Asthma Hypertension Heart disease Mother Diabetes mellitus Asthma Hypertension Depression Heart disease Sibling Asthma Diabetes mellitus Hypertension Depression Heart disease Grandparent Diabetes mellitus Hypertension Depression Heart disease Thyroid disease Grandparent Diabetes mellitus Hypertension Heart disease Social History Social History Social History: Surrogate medical decision maker: Emily Hi, mother. Code status: Full code. Smoking packs per day: 1.5 Smoking cigarettes per day: 30.0 Years smoked: 20 Smoking pack-years: 30.00 Smoking status: Current every day smoker Tobacco type: cigarettes Alcohol intake: current Alcohol use details: Socially Substance use: never Substance use type: does not use Do You Feel Safe in your Home?: Yes Lack of Transportation: No Lack of Food: Never True Current Housing: I Have Housing Concerned About Future Housing: No Difficulty Paying Gas/Electric Bills: No Difficulty Paying for Meds: No Currently Unemployed: No Education: High School Diploma/GED Difficulty w/ Childcare or Family Care: No Living arrangements: with family Spiritual care concerns: No Exam Narrative: GENERAL APPEARANCE: WELL-DEVELOPED, WELL-NOURISHED SKIN: NORMAL COLOR HEAD: NORMOCEPHALIC, NONTRAUMATIC EYES: CLEAR CONJUNCTIVA ENT: OROPHARYNX NORMAL, EARS NORMAL, NOSE NORMAL NECK: SUPPLE, NONTENDER CHEST AND RESPIRATORY: AIRWAY PATENT, NO RESPIRATORY DISTRESS, NO ACCESSORY MUSCLE USE HEART: REGULAR RATE/RHYTHM ABDOMEN: SOFT, SLIGHT TENDERNESS LEFT LOWER QUADRANT, NO BRUISES, NO GUARDING OR REBOUND, NO RASH, NO ORGANOMEGALY, QUIET BOWEL SOUNDS VASCULAR: NORMAL PERIPHERAL PULSES, NORMAL CAPILLARY REFILL. MUSCULOSKELETAL: NORMAL RANGE OF MOTION, NONTENDER BACK NEUROLOGIC: ALERT AND ORIENTED ?3, MUSHROOM GROWER IS NORMAL TESTED, NO GROSS MOTOR DEFICIT Course Vital Signs Vital signs: Vital Signs Temperature 36.1 C L 02/23/24 01:37 Pulse Rate 74 02/23/24 01:37 Respiratory Rate 18 02/23/24 01:37 Blood Pressure 144/86 H 02/23/24 01:37 Pulse Oximetry 100 02/23/24 01:37 Oxygen Delivery Room Air 02/23/24 01:37 Temperature 36.1 C L 02/23/24 03:31 Pulse Rate 65 02/23/24 03:31 Respiratory Rate 18 02/23/24 03:31 Blood Pressure 122/72 02/23/24 03:31 Pulse Oximetry 95 02/23/24 03:31 Oxygen Delivery Room Air 02/23/24 03:31 MDM - Abdominal Pain MDM Narrative Medical decision making narrative: PATIENT PRESENTS WITH LEFT LOWER QUADRANT PAIN 3 HOURS PRIOR TO ARRIVAL TO THE EMERGENCY ROOM AT REST VITAL SIGNS ARE STABLE PHYSICAL EXAMINATION SHOWING SLIGHT TENDERNESS LEFT LOWER QUADRANT DIFFERENTIAL DIAGNOSIS INCLUDE DIVERTICULITIS, COLITIS, URINARY TRACT INFECTION, KIDNEY STONE, CONSTIPATION, ABDOMINAL WALL MUSCLE PAIN Blood workup today include CBC, CMP, lipase showed WBC of 12.2, hemoglobin of 11.9, otherwise insignificant Urinalysis showed 3+ blood, no evidence of infection CT abdomen and pelvis with IV contrast showed 3 mm left ureterovesical junction stone. Discharged on [place], Flomax and Zofran. Differential Diagnosis Differential diagnosis: Likely other ( ABOVE) Medical Records Attestation: I reviewed the patient's medical records. Lab Data Attestation: I reviewed the patient's lab results. 02/23/24 01:52 02/23/24 01:52 Labs: Lab Results 02/23/24 02/23/24 Range/Units 01:52 02:37 WBC 12.2 H (4.8-10.8) K/mm3 RBC 5.75 (4.70-6.10) M/mm3 Hgb 11.9 L (14.0-18.0) g/dL Hct 36.6 L (40.0-54.0) % MCV 63.7 L (78.0-102.0) fL MCH 20.7 L (27.0-31.0) pg MCHC 32.5 (32-36) g/dL RDW 17.0 H (11.6-14.4) % Plt Count 174 (150-420) K/mm3 MPV Not Reportable Immature Gran % (Auto) 1.1 H (0.0-0.0) % Neut % (Auto) 65.4 (50.0-70.0) % Lymph % (Auto) 23.9 (18.0-42.0) % Slope % (Auto) 7.3 (2.0-11.0) % Eos % (Auto) 1.6 (1.0-6.0) % Baso % (Auto) 0.7 (0.0-1.0) % Lymph # (Auto) 2.91 (1.10-4.50) K/mm3 Slope # (Auto) 0.89 (0.10-0.90) K/mm3 Eos # (Auto) 0.19 (0.02-0.50) K/mm3 Baso # (Auto) 0.09 (0.00-0.10) K/mm3 Abs Immat Gran (auto) 0.13 H (0.00-0.00) K/mm3 Absolute Neuts (auto) 7.96 H (1.70-7.20) K/mm3 Absolute Nucleated RBC 0.00 (0.00-0.00) K/mm3 Nucleated RBC % 0.0 (0-0.0) % % Immature Plt Fraction 6.0 (1.0-7.0) % Sodium 140 (136-145) mmol/L Potassium 3.8 (3.5-5.1) mmol/L Chloride 104 (98-108) mmol/L Carbon Dioxide 25 (21-32) mmol/L Anion Gap 11 (4-12) mmol/L BUN 18 (7-18) mg/dL Creatinine 1.02 (0.70-1.30) mg/dL Estim Creat Clear Calc 83 ml/min Estimated GFR > 60 (59 - ) Glucose 127 H (70-99) mg/dL Calculated Osmolality 293 (285-295) mOsm/kg Lactic Acid 0.6 (0.4-2.0) mmol/L Calcium 8.9 (8.5-10.1) mg/dL Total Bilirubin 0.4 (0.00-1.00) mg/dL AST 14 L (15-37) U/L ALT 22 (16-63) U/L Alkaline Phosphatase 91 (46-116) U/L Total Protein 6.9 (6.4-8.2) g/dL Albumin 3.8 (3.4-5.0) g/dL Lipase 32 (16-77) U/L Urine Color Yellow (Yellow) Urine Appearance Clear (Clear) Urine pH 5.5 (5.0-8.0) Ur Specific [place] >= 1.030 H (1.010-1.020) Urine Protein Trace H (Negative) Urine Glucose (UA) Negative (Negative) Urine Ketones Trace H (Negative) Ur Blood (Man) 3+ H (Negative) Urine Nitrate Negative (Negative) Urine Bilirubin Negative (Negative) Urine Urobilinogen 0.2 (0.2-1.0) mg/dL Leukocyte Esterase Rfl Negative (Negative) EDGAR/UL Urine RBC 11-20 H (0-2) /hpf Urine WBC 0-3 (0-3) /hpf Ur Squamous Epith Cells Rare (Few) /hpf Urine Bacteria Trace (None) /hpf Urine Mucus Moderate H /lpf Imaging Data Radiologist's impression: CT abdomen pelvis with IV contrast showed 3 mm calculus at the left ureterovesical junction causing mild left hydronephrosis, left perinephric stranding. Critical Care Time Critical Care Time Critical Care Time: No Discharge Plan Discharge Clinical Impression: Kidney stone on left side Patient Disposition: Home, Self-Care Condition: Improved Instructions: Kidney Stones (ED), How to Strain Your Urine (ED) Additional Instructions: Return if symptoms are worsening , call urologist for appointment, take Tylenol as as needed for aches and pain, continue home medications. Prescriptions: New hydrocodone-acetaminophen 5-325 mg tablet 1 tablet PO Q4H Qty: 20 0RF tamsulosin [Flomax] 0.4 mg capsule 0.4 mg PO DAILY Qty: 10 0RF ondansetron HCl 4 mg tablet 4 mg PO Q4H Qty: 10 0RF Rx Instructions: 1st dose 1-2 hr before radiation No Action clopidogrel 75 mg tablet 75 mg PO DAILY metoprolol tartrate 50 mg tablet 25 mg PO BID hydrocodone-acetaminophen 5-325 mg tablet 1 tablet PO Q12H PRN (Reason: pain, severe) Qty: 14 0RF ondansetron 8 mg tablet,disintegrating 8 mg PO Q8H PRN (Reason: nausea and vomiting) Qty: 20 0RF amoxicillin-pot clavulanate [Augmentin] 500-125 mg tablet 1 tablet PO TID Qty: 30 0RF fluticasone propionate [Flonase Allergy Relief] 50 mcg/actuation spray,suspension 1 spray intranasal DAILY Rx Instructions: administer into each nostril Entresto 24-26 mg tablet 0.5 tablet PO BID aspirin [Piper Low Dose Aspirin] 81 mg Tablet,Delayed Release (Dr/Ec) 81 mg PO DAILY ezetimibe 10 mg Tablet 10 mg PO DAILY atorvastatin tablet 40 mg PO DAILY pantoprazole 40 mg tablet,delayed release (DR/EC) 40 mg PO .daily Qty: 30 11RF Follow-up/Referrals: Bryan Beltran MD [Physician] - 02/24/24 Misael Camargo MD [Primary Care Provider] -
[2024-02-23 02:02] LABS: Basophils Absolute Auto 0.09 K/mm3 (0.00-0.10); Basophils Percent Auto 0.7 % (0.0-1.0); Eosinophils Absolute Auto 0.19 K/mm3 (0.02-0.50); Eosinophils Percent Auto 1.6 % (1.0-6.0); Hematocrit 36.6 % (40.0-54.0); Hemoglobin 11.9 g/dL (14.0-18.0); Immature Granulocyte Absolute 0.13 K/mm3 (0.00-0.00); Immature Granulocyte Percent A 1.1 % (0.0-0.0); Lymphocytes Absolute Auto 2.91 K/mm3 (1.10-4.50); Lymphocytes Percent Auto 23.9 % (18.0-42.0); Mean Corpuscular HGB Conc 32.5 g/dL (32-36); Mean Corpuscular Hemoglobin 20.7 pg (27.0-31.0); Mean Corpuscular Volume 63.7 fL (78.0-102.0); Monocytes Absolute Auto 0.89 K/mm3 (0.10-0.90); Monocytes Percent Auto 7.3 % (2.0-11.0); Neutrophils Absolute Auto 7.96 K/mm3 (1.70-7.20); Neutrophils Percent Auto 65.4 % (50.0-70.0); Platelet Count Result 174 K/mm3 (150-420); Red Blood Count 5.75 M/mm3 (4.70-6.10); White Blood Count 12.2 K/mm3 (4.8-10.8)
[2024-02-23] MEDS: MORPHINE SULFATE (*CRX) 4 MG/ML INJ IV PUSH (02:21)
[2024-02-23] MEDS: SODIUM CHLORIDE 0.9% IV 1,000 ML 999 ML IV CONT (02:21)
[2024-02-23] MEDS: ONDANSETRON INJ 4 MG/2 ML VIAL IV PUSH (02:21)
[2024-02-23 02:22] LABS: Alanine Aminotransferase 22 U/L (16-63); Albumin Level 3.8 g/dL (3.4-5.0); Alkaline Phosphatase 91 U/L (46-116); Anion Gap 11 mmol/L (4-12); Aspartate Amino Transferase 14 U/L (15-37); Bilirubin,Total 0.4 mg/dL (0.00-1.00); Blood Urea Nitrogen 18 mg/dL (7-18); Calcium 8.9 mg/dL (8.5-10.1); Carbon Dioxide 25 mmol/L (21-32); Chloride 104 mmol/L (98-108); Estimated CRCL calculation 83 ml/min; Estimated Glomerular Filt Rate > 60; Glucose 127 mg/dL (70-99); Lipase 32 U/L (16-77); Osmolality Calculated 293 mOsm/kg (285-295); Potassium 3.8 mmol/L (3.5-5.1); Sodium 140 mmol/L (136-145); Total Protein 6.9 g/dL (6.4-8.2)
--- NOTE | 2024-02-23 02:22 | PC.NURSE ---
patient medicated per order, see MAR. patient resting on stretcher, given warm blanket and lights dimmed for comfort. call light within reach. patient mother remains at bedside, given warm blanket for comfort. RN monitoring.
[2024-02-23 02:29] LABS: Lactic Acid Reflex 0.6 mmol/L (0.4-2.0)
[2024-02-23 02:39] LABS: Add Urine Microscopic? YES; Appearance Urine Clear (Clear); Bilirubin Urine Negative (Negative); Blood Urine 3+ (Negative); Color Urine Yellow (Yellow); Glucose Urine UA Negative (Negative); Ketones Urine Trace (Negative); Leukocyte Esterase Ur Negative LEU/UL (Negative); Nitrate Urine Negative (Negative); Protein Urine Trace (Negative); Specific Grav Ur >= 1.030 (1.010-1.020); Urobilinogen Urine 0.2 mg/dL (0.2-1.0); pH Urine 5.5 (5.0-8.0)
[2024-02-23 02:45] LABS: Bacteria Urine Trace /hpf; Mucus Urine Moderate /lpf; Squamous Epithelial Cell Urine Rare /hpf (Few); WBC Urine 0-3 /hpf (0-3)
--- NOTE | 2024-02-23 03:23 | PC.NURSE ---
patient returned from imaging. RN monitoring. call light within reach. mother at bedside. update provided.
[2024-02-23 03:31] VITALS: BP 122/72; PULSE 65; RESP 18; TEMP 36.1; O2SAT 95
--- NOTE | 2024-02-23 04:07 | PC.NURSE ---
ERP Dr. Rosenbaum at patient bedside at this time speaking with patient and his mother providing update.
[2024-02-23 04:08] VITALS: BP 120/70; PULSE 64; RESP 16; O2SAT 96
[2024-02-23] MEDS: TAMSULOSIN HCL 0.4 MG CAPSULE PO (04:13)
== END 2024-02-23 04:21 | disposition home or self-care (01) ==
PROVIDERS: Emergency Provider Emergency Medicine; PCP Internal Medicine
DX: N20.0 Calculus of kidney (principal); I25.10 Atherosclerotic heart disease of native coronary artery without angina pectoris; I25.2 Old myocardial infarction; I11.0 Hypertensive heart disease with heart failure; I50.9 Heart failure, unspecified; F17.210 Nicotine dependence, cigarettes, uncomplicated; Z90.49 Acquired absence of other specified parts of digestive tract; Z79.82 Long term (current) use of aspirin
CPT/HCPCS: 36415; 74177; 80053; 81001; 83605; 83690; 85025; 85055; 96361; 96374; 96375; 99284; A9270; J2270; J2405; J7030; Q9967

== ENCOUNTER 2024-02-26 10:53 | Outpatient (CLI) | payer MEDICARE, SELFPAY ==
[2024-02-26 11:11] LABS: Add Urine Microscopic? YES; Appearance Urine Clear (Clear); Bilirubin Urine Negative (Negative); Blood Urine Negative (Negative); Color Urine Yellow (Yellow); Glucose Urine UA Negative (Negative); Ketones Urine Negative (Negative); Leukocyte Esterase Ur Negative LEU/UL (Negative); Nitrate Urine Negative (Negative); Protein Urine Trace (Negative); Specific Grav Ur >= 1.030 (1.010-1.020); Urobilinogen Urine 0.2 mg/dL (0.2-1.0); pH Urine 5.5 (5.0-8.0)
[2024-02-26 11:17] LABS: Bacteria Urine Trace /hpf; Mucus Urine Moderate /lpf; RBC Urine None seen /hpf (0-2); Squamous Epithelial Cell Urine Few /hpf (Few); WBC Urine None seen /hpf (0-3)
== END 2024-02-26 10:54 | disposition home or self-care (01) ==
LOC: CHSLAB 10:55
PROVIDERS: PCP Internal Medicine; Visit Provider Internal Medicine
DX: N20.0 Calculus of kidney (principal)
CPT/HCPCS: 81001